=== PATIENT | female | born 1945 | race Caucasian/White ===

== ENCOUNTER 2017-07-28 11:15 | Emergency (ER) | payer MEDICARE, OTHER ==
[2017-07-28 11:35] VITALS: RESP 18
[2017-07-28] MEDS ORDERED: HYDROcodone/APAP 5-325MG 1 EACH TAB PO STA (11:52)
[2017-07-28] MEDS ORDERED: IBUPROFEN 600 MG TAB PO STA (11:52)
--- NOTE | 2017-07-28 12:07 | ED ---
Lower Extremity Injury HPI - General Chief Complaint: Extremity Injury, Lower Stated Complaint: lower leg pain Time Seen by Provider: 07/28/17 11:40 Source: patient, RN notes reviewed Mode of arrival: EMS Limitations: no limitations - History of Present Illness Initial Comments: 72-year-old female presented emergency department chief complaint of right leg pain. Patient states started yesterday progressively getting worse. Patient states the pain pain is primarily right knee and right lower leg. Patient denies any trauma. She does have known osteoarthritis of the right knee. Patient states that her so bad that she's just that she cannot move it but she physically 10 if she pushes to the pain. Denies any paresthesias. Denies any change in her normal back pain. Denies any bowel bladder incontinence or retention. Patient denies any swelling or redness or any known rash over her right leg. - Related Data Home Medications Medication Instructions Recorded Confirmed Lisinopril-Hctz 20-12.5 mg 1 tab PO DAILY 03/05/14 07/28/17 [Zestoretic 20-12.5] amLODIPine [Norvasc] 5 mg PO DAILY 03/05/14 07/28/17 Calcium Carbonate/Vitamin D3 1 tab PO BID 05/21/14 07/28/17 [Calcium 600 + Vit D Tablet] Albuterol Inhaler [Ventolin Hfa 2 puff INHALATION RT-QID 07/28/17 07/28/17 Inhaler] Cyanocobalamin (Vitamin B-12) 1,000 mcg PO DAILY 07/28/17 07/28/17 [Vitamin B-12] Multivit-Min/FA/Lycopen/Lutein 1 tab PO DAILY 07/28/17 07/28/17 [Centrum Silver Tablet] Previous Rx's Medication Instructions Recorded Acetaminophen-Codeine 300-30mg 1 tab PO Q4H PRN #14 tablet 07/28/17 [Tylenol #3] Allergies Allergy/AdvReac Type Severity Reaction Status Date / Time aspirin AdvReac Nausea & Verified 07/28/17 11:50 Vomiting Review of Systems ROS Statement: Those systems with pertinent positive or pertinent negative responses have been documented in the HPI. ROS Other: All systems not noted in ROS Statement are negative. Past Medical History Past Medical History: Asthma, Hypertension, Skin Disorder Additional Past Medical History / Comment(s): PSORIASIS TAQUERIA. LEGS UP TO KNEES- NO RX USED History of Any Multi-Drug Resistant Organisms: None Reported Past Surgical History: Tubal Ligation Additional Past Surgical History / Comment(s): D & C 1979'S, TL 1971 Past Anesthesia/Blood Transfusion Reactions: No Reported Reaction Past Psychological History: No Psychological Hx Reported Smoking Status: Former smoker General Exam Limitations: no limitations General appearance: alert, in no apparent distress Head exam: Present: atraumatic, normocephalic, normal inspection Respiratory exam: Present: normal lung sounds bilaterally. Absent: respiratory distress, wheezes, rales, rhonchi, stridor Cardiovascular Exam: Present: regular rate, normal rhythm, normal heart sounds. Absent: systolic murmur, diastolic murmur, rubs, gallop, clicks Extremities exam: Present: other (Right knee there is pain with range of motion neurovascular intact patient has decreased range of motion of right leg as she reports pain. Patient has full strength of her right foot and ankle) Neurological exam: Present: alert, oriented X3, CN II-XII intact, reflexes normal. Absent: motor sensory deficit Skin exam: Present: warm, dry, intact, normal color. Absent: rash Course Vital Signs 07/28/17 07/28/17 11:31 13:07 Temperature 98.3 F Pulse Rate 60 80 Respiratory 18 18 Rate Blood Pressure 147/63 140/61 O2 Sat by Pulse 94 L 96 Oximetry Medical Decision Making - Medical Decision Making 72-year-old female presents from chief complaint of right knee pain, right leg pain. Patient is found to have a right Reed's cyst andarthritis of the right knee. Patient we given pain medication follow-up with orthopedics. Return parameters were discussed. Disposition Clinical Impression: Reed's cyst of knee, Right leg pain Disposition: HOME SELF-CARE Condition: Stable Instructions: Knee Pain (ED) Additional Instructions: Please return to the Emergency Department if symptoms worsen or any other concerns. Prescriptions: Acetaminophen-Codeine 300-30mg [Tylenol #3] 1 tab PO Q4H PRN #14 tablet PRN Reason: pain Is patient prescribed a controlled substance at d/c from ED?: Yes When asked, does pt state using other controlled substances?: No If prescribed controlled substance>3 days was MAPS reviewed?: Prescribed <3 Days If opioid is for acute pain is fill amount 7 days or less?: Yes Referrals: Emilio Le DO [Primary Care Provider] - 1-2 days Bharathi Ferrara MD [STAFF PHYSICIAN] - 1-2 days Time of Disposition: 13:28
--- NOTE | 2017-07-28 12:42 | XR ---
EXAMINATION TYPE: XR knee complete RT DATE OF EXAM: 07/28/2017 CLINICAL HISTORY: pain TECHNIQUE: Three views of the right knee are obtained. COMPARISON: None. FINDINGS: There is no acute fracture/dislocation. The tri-compartment joint spaces appear severely narrowed. Small supra patellar joint effusion The overlying soft tissue appears unremarkable. IMPRESSION: There is no acute fracture or dislocation.ICD 10 NO FRACTURE, INITIAL EVALUATION
--- NOTE | 2017-07-28 13:24 | US ---
EXAMINATION TYPE: US venous doppler duplex LE RT DATE OF EXAM: 07/28/2017 1:08 PM COMPARISON: NONE CLINICAL HISTORY: Pain. No hx of blood clots or blood thinners. No surgeries. No injury. Patient s tates sudden onset of pain. SIDE PERFORMED: Right TECHNIQUE: The lower extremity deep venous system is examined utilizing real time linear array sonog eliezer with graded compression, doppler sonography and color-flow sonography. VESSELS IMAGED: External Iliac Vein (EIV) Common Femoral Vein Deep Femoral Vein Greater Saphenous Vein * Femoral Vein Popliteal Vein Proximal Calf Veins (* superficial vessels) Right Leg: Negative for DVT. Posterior knee, cystic appearing lesion seen with internal debris and septations = 6.9 x 3.9 x 1.8 cm IMPRESSION: 1. Right lower extremity ultrasound negative for deep venous thrombosis. 2. 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
[2017-07-28 13:37] VITALS: BP 161/74; PULSE 63; TEMP 97.3
== END 2017-07-28 14:03 | disposition home or self-care (01) ==
LOC: EC 11:15
DX: M71.21 Synovial cyst of popliteal space [Baker], right knee (principal); M79.604 Pain in right leg; M17.11 Unilateral primary osteoarthritis, right knee; Z88.6 Allergy status to analgesic agent; I10 Essential (primary) hypertension; J45.909 Unspecified asthma, uncomplicated; Z87.891 Personal history of nicotine dependence; Z79.899 Other long term (current) drug therapy
CPT/HCPCS: 99284

== ENCOUNTER 2018-02-22 00:25 | Inpatient (IN) | payer MEDICARE ==
[2018-02-22] MEDS ORDERED: IPRATROPIUM-ALBUTEROL 3 ML NEB INHALATION STA (00:50)
[2018-02-22 01:11] LABS: Basophils % (A) 1 %; Eosinophils # (A) 0.2 k/uL (0-0.7); Eosinophils % (A) 3 %; HCT 47.1 % (34.0-46.0); HGB 14.5 gm/dL (11.4-16.0); Lymphocytes % (A) 15 %; MCH 29.5 pg (25.0-35.0); MCHC 30.8 g/dL (31.0-37.0); MCV 95.7 fL (80.0-100.0); Mean Platelet Volume 6.8; Monocytes # (A) 0.4 k/uL (0-1.0); Monocytes % (A) 7 %; Neutrophils # (A) 4.5 k/uL (1.3-7.7); Neutrophils % (A) 71 %; Platelet Count 215 k/uL (150-450); RBC 4.92 m/uL (3.80-5.40); RDW 14.9 % (11.5-15.5); WBC 6.3 k/uL (3.8-10.6)
[2018-02-22 01:26] LABS: INR 0.9 (<1.2); Prothrombin Time 9.6 sec (9.0-12.0)
[2018-02-22 01:27] LABS: Creatine Kinase 44 U/L (30-135)
[2018-02-22 01:29] LABS: ALT 31 U/L (9-52); AST 37 U/L (14-36); Albumin 4.3 g/dL (3.5-5.0); Alkaline Phosphatase 68 U/L (38-126); Anion Gap 8 mmol/L; Blood Urea Nitrogen 11 mg/dL (7-17); Calcium 9.7 mg/dL (8.4-10.2); Carbon Dioxide 28 mmol/L (22-30); Chloride 99 mmol/L (98-107); Glucose 108 mg/dL (74-99); Magnesium 1.8 mg/dL (1.6-2.3); Sodium 135 mmol/L (137-145); Total Bilirubin 0.8 mg/dL (0.2-1.3); Total Protein 7.6 g/dL (6.3-8.2)
[2018-02-22 01:31] LABS: Partial Thromboplastin Time 20.6 sec (22.0-30.0)
[2018-02-22 01:33] LABS: Potassium 4.4 mmol/L (3.5-5.1)
--- NOTE | 2018-02-22 01:36 | XR ---
EXAMINATION TYPE: XR chest 2V DATE OF EXAM: 02/22/2018 COMPARISON: 06/12/2009 HISTORY: Cough and short of breath TECHNIQUE: Frontal and lateral views of the chest are obtained. FINDINGS: There is some linear density in the left midlung. Heart and mediastinum are within normal limits. There is no heart failure. The costophrenic angles are clear. Bony thorax is intact. There ar e chest leads. IMPRESSION: There is no lingula atelectasis compared to old exam. Normal heart.
[2018-02-22 01:40] LABS: Creatine Kinase MB 2.8 ng/mL (0.0-2.4); Troponin I <0.012 ng/mL (0.000-0.034)
[2018-02-22] MEDS ORDERED: MORPHINE SULFATE 4 MG/ML SYRINGE IVP STA ×2 (01:58→02:03)
[2018-02-22] MEDS ORDERED: IPRATROPIUM-ALBUTEROL 3 ML NEB INHALATION PRN (02:21)
[2018-02-22] MEDS ORDERED: PROMETHAZ-COD 6.25-10 MG/5 ML 5 ML CUP PO PRN (02:21)
--- NOTE | 2018-02-22 02:39 | ED ---
General Adult HPI - General Chief complaint: Shortness of Breath Stated complaint: Shortness of Breath Time Seen by Provider: 02/22/18 00:37 Source: patient, EMS Limitations: no limitations - History of Present Illness Initial comments: Jennifer is a 72-year-old female with a history of COPD for which she has home breathing treatments, patient is still an everyday smoker and does not use oxygen. Patient presents to the emergency department today via EMS for evaluation of progressively worsening shortness of breath for 2 days duration. Patient states that her shortness of breath worsened yesterday she's been using breathing treatments regularly but this evening her shortness of breath became overwhelming. She feels like she can't catch her breath, she is wheezing. He denies any fevers or subjective fevers, chills, nausea or vomiting. She denies any chest pain or palpitations. She does not use oxygen at baseline, EMS reports they found her with an oxygen saturation of only 83%, she was placed on supplement oxygen via nasal cannula, given 2 DuoNeb's in route to the hospital as well as 50 mg of oral prednisone. Breathing improved somewhat with oxygen and breathing treatments prior to arrival. - Related Data Home Medications Medication Instructions Recorded Confirmed Lisinopril-Hctz 20-12.5 mg 1 tab PO DAILY 03/05/14 02/22/18 [Zestoretic 20-12.5] amLODIPine [Norvasc] 5 mg PO DAILY 03/05/14 02/22/18 Calcium Carbonate/Vitamin D3 1 tab PO BID 05/21/14 02/22/18 [Calcium 600 + Vit D Tablet] Albuterol Inhaler [Ventolin Hfa 2 puff INHALATION RT-QID 07/28/17 02/22/18 Inhaler] Cyanocobalamin (Vitamin B-12) 1,000 mcg PO DAILY 07/28/17 02/22/18 [Vitamin B-12] Multivit-Min/FA/Lycopen/Lutein 1 tab PO DAILY 07/28/17 02/22/18 [Centrum Silver Tablet] Albuterol Inhaler [Ventolin Hfa 2 puff QID 02/22/18 02/22/18 Inhaler] Budesonide [Pulmicort] 02/22/18 Previous Rx's Medication Instructions Recorded Acetaminophen-Codeine 300-30mg 1 tab PO Q4H PRN #14 tablet 07/28/17 [Tylenol #3] Allergies Allergy/AdvReac Type Severity Reaction Status Date / Time aspirin AdvReac Nausea & Verified 07/28/17 11:50 Vomiting Review of Systems ROS Statement: Those systems with pertinent positive or pertinent negative responses have been documented in the HPI. ROS Other: All systems not noted in ROS Statement are negative. Past Medical History Past Medical History: Asthma, Hypertension, Skin Disorder Additional Past Medical History / Comment(s): PSORIASIS TAQUERIA. LEGS UP TO KNEES- NO RX USED History of Any Multi-Drug Resistant Organisms: None Reported Past Surgical History: Tubal Ligation Additional Past Surgical History / Comment(s): D & C , TL 1971 Past Anesthesia/Blood Transfusion Reactions: No Reported Reaction Past Psychological History: No Psychological Hx Reported Smoking Status: Former smoker - Past Family History Mother Additional Family Medical History / Comment(s): pacemaker General Exam - General Exam Comments Initial Comments: Physical Exam GENERAL: Appears older than stated age, in moderate respiratory distress HENT: Normocephalic, Atraumatic. EYES: PERRL, EOMI PULMONARY: Tachypnea, wheezing in all lung jay CARDIOVASCULAR: There is a regular rate and rhythm without any murmurs gallops or rubs. ABDOMEN: Soft and nontender with normal bowel sounds. SKIN: Skin changes consistent with chronic tobacco abuse : Deferred NEUROLOGIC: Patient is alert and oriented x3. Moving all extremities spontaneously MUSCULOSKELETAL: Normal extremities with adequate strength and full range of motion. No lower extremity swelling or edema. No calf tenderness. PSYCHIATRIC: Normal psychiatric evaluation. Limitations: no limitations Limitations: no limitations Course Vital Signs 02/22/18 02/22/18 02/22/18 00:43 01:00 01:26 Temperature 97.5 F L Pulse Rate 87 89 80 Respiratory 18 22 Rate Blood Pressure 166/77 166/77 O2 Sat by Pulse 91 L 98 Oximetry 02/22/18 02/22/18 02/22/18 01:30 01:34 02:00 Temperature Pulse Rate 80 86 87 Respiratory 20 18 Rate Blood Pressure 161/67 141/77 O2 Sat by Pulse 98 96 Oximetry 02/22/18 02/22/18 02:30 03:05 Temperature 98.3 F Pulse Rate 67 Respiratory 14 Rate Blood Pressure 151/72 O2 Sat by Pulse 97 Oximetry EKG Findings - EKG Comments: EKG Findings:: EKG obtained at 12:56 AM, rate is 91, rhythm is sinus, there is normal axis, normal intervals, WI 158, QRS 88, QTC 464, there is no acute ST elevations or depressions no evidence of acute ischemia or infarction Medical Decision Making - Medical Decision Making The patient was seen and evaluated immediately upon arrival patient in moderate respiratory ears distress patient has received 2 DuoNeb's and oral steroids, third breathing treatment labs and imaging were ordered Patient on supplemental oxygen via nasal cannula with oxygen saturations in the low 90s, reports improvement in her symptoms since EMS arrival Labs no significant abnormalities Test x-ray and no evidence of pneumonia Given the patient's new requirement of oxygen, profound hypoxia upon arrival and respiratory distress I do feel the patient warrants admission to the hospital for [id number] breathing treatments, steroids, supplemental oxygen. Patient is agreeable to this. I offered to order the patient a nicotine patch she declined stating that she does well without nicotine at home and can go days without cigarettes without problems. I offered nicotine gum should she want. However she stated that due to her poor dental condition she cannot chew gum. [facility] orders were placed. - Lab Data Result diagrams: 02/22/18 01:00 02/22/18 01:00 Lab Results 02/22/18 02/22/18 02/22/18 Range/Units 01:00 01:00 01:00 WBC 6.3 (3.8-10.6) k/uL RBC 4.92 (3.80-5.40) m/uL Hgb 14.5 (11.4-16.0) gm/dL Hct 47.1 H (34.0-46.0) % MCV 95.7 (80.0-100.0) fL MCH 29.5 (25.0-35.0) pg MCHC 30.8 L (31.0-37.0) g/dL RDW 14.9 (11.5-15.5) % Plt Count 215 (150-450) k/uL Neutrophils % 71 % Lymphocytes % 15 % Monocytes % 7 % Eosinophils % 3 % Basophils % 1 % Neutrophils # 4.5 (1.3-7.7) k/uL Lymphocytes # 1.0 (1.0-4.8) k/uL Monocytes # 0.4 (0-1.0) k/uL Eosinophils # 0.2 (0-0.7) k/uL Basophils # 0.0 (0-0.2) k/uL PT (9.0-12.0) sec INR (<1.2) APTT (22.0-30.0) sec Sodium 135 L (137-145) mmol/L Potassium 4.4 (3.5-5.1) mmol/L Chloride 99 (98-107) mmol/L Carbon Dioxide 28 (22-30) mmol/L Anion Gap 8 mmol/L BUN 11 (7-17) mg/dL Creatinine 0.38 L (0.52-1.04) mg/dL Est GFR (CKD-EPI)AfAm >90 (>60 ml/min/1.73 sqM) Est GFR (CKD-EPI)NonAf >90 (>60 ml/min/1.73 sqM) Glucose 108 H (74-99) mg/dL Calcium 9.7 (8.4-10.2) mg/dL Magnesium 1.8 (1.6-2.3) mg/dL Total Bilirubin 0.8 (0.2-1.3) mg/dL AST 37 H (14-36) U/L ALT 31 (9-52) U/L Alkaline Phosphatase 68 (38-126) U/L Total Creatine Kinase 44 (30-135) U/L CK-MB (CK-2) 2.8 H (0.0-2.4) ng/mL CK-MB (CK-2) Rel Index 6.4 Troponin I <0.012 (0.000-0.034) ng/mL NT-Pro-B Natriuret Pep pg/mL Total Protein 7.6 (6.3-8.2) g/dL Albumin 4.3 (3.5-5.0) g/dL 02/22/18 02/22/18 Range/Units 01:00 01:00 WBC (3.8-10.6) k/uL RBC (3.80-5.40) m/uL Hgb (11.4-16.0) gm/dL Hct (34.0-46.0) % MCV (80.0-100.0) fL MCH (25.0-35.0) pg MCHC (31.0-37.0) g/dL RDW (11.5-15.5) % Plt Count (150-450) k/uL Neutrophils % % Lymphocytes % % Monocytes % % Eosinophils % % Basophils % % Neutrophils # (1.3-7.7) k/uL Lymphocytes # (1.0-4.8) k/uL Monocytes # (0-1.0) k/uL Eosinophils # (0-0.7) k/uL Basophils # (0-0.2) k/uL PT 9.6 (9.0-12.0) sec INR 0.9 (<1.2) APTT 20.6 L (22.0-30.0) sec Sodium (137-145) mmol/L Potassium (3.5-5.1) mmol/L Chloride (98-107) mmol/L Carbon Dioxide (22-30) mmol/L Anion Gap mmol/L BUN (7-17) mg/dL Creatinine (0.52-1.04) mg/dL Est GFR (CKD-EPI)AfAm (>60 ml/min/1.73 sqM) Est GFR (CKD-EPI)NonAf (>60 ml/min/1.73 sqM) Glucose (74-99) mg/dL Calcium (8.4-10.2) mg/dL Magnesium (1.6-2.3) mg/dL Total Bilirubin (0.2-1.3) mg/dL AST (14-36) U/L ALT (9-52) U/L Alkaline Phosphatase (38-126) U/L Total Creatine Kinase (30-135) U/L CK-MB (CK-2) (0.0-2.4) ng/mL CK-MB (CK-2) Rel Index Troponin I (0.000-0.034) ng/mL NT-Pro-B Natriuret Pep 226 pg/mL Total Protein (6.3-8.2) g/dL Albumin (3.5-5.0) g/dL Disposition Clinical Impression: Acute exacerbation of chronic obstructive airways disease, Hypoxia Disposition: ADMITTED IP TO THIS HOSP Is patient prescribed a controlled substance at d/c from ED?: No
[2018-02-22 03:49] VITALS: BMI 36.1
[2018-02-22] MEDS ORDERED: predniSONE 20 MG TAB PO SCH (09:00)
[2018-02-22] MEDS: methylPREDNISolone SOD SUCCI 125 MG/2 ML VIAL IV SCH ×3 (12:49→23:59)
--- NOTE | 2018-02-22 14:13 | P.HPIM ---
History of Present Illness 70-year-old pleasant female continues to smoke about a pack per week known history of COPD doesn't use any oxygen at home came in with the severe shortness of breath found to be in acute hypercapnic respiratory failure was started on 4 L of oxygen started on systemic steroids inhalational treatments patient is still bit tachypneic tachycardic short of breath and wheezing at this time patient denied any fever chills patient is comparing of cough with sputum production chest x-ray did not show any pneumonic process. She denied any fever chills his symptoms has been going on for last 2-3 days Review of Systems REVIEW OF SYSTEMS: CONSTITUTIONAL: No fever, no malaise, no fatigue. HEENT: No recent visual problems or hearing problems. Denied any sore throat. CARDIOVASCULAR: No chest pain, orthopnea, PND, no palpitations, no syncope. PULMONARY:no hemoptysis. GASTROINTESTINAL: No diarrhea, no nausea, no vomiting, no abdominal pain. NEUROLOGICAL: No headaches, no weakness, no numbness. HEMATOLOGICAL: Denies any bleeding or petechiae. GENITOURINARY: Denies any burning micturition, frequency, or urgency. MUSCULOSKELETAL/RHEUMATOLOGICAL: Denies any joint pain, swelling, or any muscle pain. ENDOCRINE: Denies any polyuria or polydipsia. The rest of the 14-point review of systems is negative. Past Medical History Past Medical History: Asthma, Hypertension, Skin Disorder Additional Past Medical History / Comment(s): PSORIASIS TAQUERIA. LEGS UP TO KNEES- NO RX USED History of Any Multi-Drug Resistant Organisms: None Reported Past Surgical History: Tubal Ligation Additional Past Surgical History / Comment(s): D & C , TL 1971 Past Anesthesia/Blood Transfusion Reactions: No Reported Reaction Past Psychological History: No Psychological Hx Reported Smoking Status: Former smoker - Past Family History Mother Additional Family Medical History / Comment(s): pacemaker Medications and Allergies Home Medications Medication Instructions Recorded Confirmed Type Lisinopril-Hctz 20-12.5 mg 1 tab PO DAILY 03/05/14 02/22/18 History [Zestoretic 20-12.5] amLODIPine [Norvasc] 5 mg PO DAILY 03/05/14 02/22/18 History Calcium Carbonate/Vitamin D3 1 tab PO BID 05/21/14 02/22/18 History [Calcium 600 + Vit D Tablet] Albuterol Inhaler [Ventolin Hfa 2 puff INHALATION RT-QID 07/28/17 02/22/18 History Inhaler] Multivit-Min/FA/Lycopen/Lutein 1 tab PO DAILY 07/28/17 02/22/18 History [Centrum Silver Tablet] Albuterol Nebulized [Ventolin 2.5 mg INHALATION RT-Q6H PRN 02/22/18 02/22/18 History Nebulized] Budesonide [Pulmicort] 0.5 mg INHALATION RT-BID 02/22/18 02/22/18 History Allergies Allergy/AdvReac Type Severity Reaction Status Date / Time aspirin AdvReac Nausea & Verified 02/22/18 08:06 Vomiting Physical Exam Vitals: Vital Signs Temp Pulse Pulse Resp BP BP Pulse Ox 02/22/18 11:51 98 F 83 18 171/76 92 L 02/22/18 07:22 90 02/22/18 07:12 88 02/22/18 06:16 97.9 F 70 18 158/75 95 02/22/18 03:33 97.4 F L 79 18 136/63 93 L 02/22/18 03:05 98.3 F 02/22/18 02:30 67 14 151/72 97 02/22/18 02:00 87 18 141/77 96 02/22/18 01:34 86 02/22/18 01:30 80 20 161/67 98 02/22/18 01:26 80 02/22/18 01:00 89 22 166/77 98 02/22/18 00:43 97.5 F L 87 18 166/77 91 L Intake and Output 02/21/18 02/22/18 02/22/18 22:59 06:59 14:59 Intake Total 250 Balance 250 Intake: Oral 250 Other: Voiding Method Toilet Toilet Diaper Diaper Incontinent Incontinent Weight 92.5 kg PHYSICAL EXAMINATION: GENERAL: The patient is alert and oriented x3, is in significant respiratory distress using accessory muscles of breathing gets short of breath with minimal exertion can't even complete full sentences because of shortness of breath Well developed, well nourished. HEENT: Pupils are round and equally reacting to light. EOMI. No scleral icterus. No conjunctival pallor. Normocephalic, atraumatic. No pharyngeal erythema. No thyromegaly. CARDIOVASCULAR: S1 and S2 present. No murmurs, rubs, or gallops. PULMONARY: Diffuse expiratory wheezing on exam ABDOMEN: Soft, nontender, nondistended, normoactive bowel sounds. No palpable organomegaly. MUSCULOSKELETAL: No joint swelling or deformity. EXTREMITIES: No cyanosis, clubbing, or pedal edema. NEUROLOGICAL: Gross neurological examination did not reveal any focal deficits. SKIN: No rashes. Results CBC & Chem 7: 02/22/18 01:00 02/22/18 01:00 Labs: Abnormal Lab Results - Last 24 Hours (Table) 02/22/18 02/22/18 02/22/18 Range/Units 01:00 01:00 01:00 Hct 47.1 H (34.0-46.0) % MCHC 30.8 L (31.0-37.0) g/dL APTT (22.0-30.0) sec Sodium 135 L (137-145) mmol/L Creatinine 0.38 L (0.52-1.04) mg/dL Glucose 108 H (74-99) mg/dL AST 37 H (14-36) U/L CK-MB (CK-2) 2.8 H (0.0-2.4) ng/mL 02/22/18 Range/Units 01:00 Hct (34.0-46.0) % MCHC (31.0-37.0) g/dL APTT 20.6 L (22.0-30.0) sec Sodium (137-145) mmol/L Creatinine (0.52-1.04) mg/dL Glucose (74-99) mg/dL AST (14-36) U/L CK-MB (CK-2) (0.0-2.4) ng/mL Thrombosis Risk Factor Assmnt - Choose All That Apply Any of the Below Risk Factors Present?: Yes Each Factor Represents 1 point: Abnormal pulmonary function (COPD), Obesity ( BMI >25) Other Risk Factors: Yes Each Risk Factor Represents 2 Points: Age 61-74 years, Patient confined to bed Other congenital or acquired thrombophilia - If yes, enter type in comment: No Thrombosis Risk Factor Assessment Total Risk Factor Score: 6 Thrombosis Risk Factor Assessment Level: High Risk Assessment and Plan Plan: -Acute hypercapnic respiratory failure secondary to COPD exacerbation nicotine cessation counseling was provided did continue with IV steroids inhalational treatments patient was started on doxycycline. Patient is severely short of breath will continue to monitor closely if needed patient will be started on BiPAP -Hypertension: Patient blood pressure is bit elevated patient resumed on her anti-happens medications -Psoriasis Patient will need pharmacologic DVT and GI prophylaxis
[2018-02-22] MEDS: amLODIPine 5 MG TAB PO SCH (14:25)
[2018-02-22] MEDS: LISINOPRIL-HCTZ 20-12.5 MG 1 EACH TAB PO SCH (14:25)
[2018-02-22] MEDS: IPRATROPIUM-ALBUTEROL 3 ML NEB INHALATION SCH ×3 (15:26→23:40)
[2018-02-22 17:30] LABS: Glucose,Whole Blood 157 mg/dL (75-99)
[2018-02-22] MEDS: CALCIUM CARB-VIT D 500MG-200UN 1 EACH TAB PO SCH (17:40)
[2018-02-22] MEDS: INSULIN ASPART 100 UNIT/ML 1 ML 10 ML VIAL SQ SCH ×2 (17:40→21:41)
[2018-02-22] MEDS: BUDESONIDE 0.5 MG/2 ML NEBU INHALATION SCH (19:25)
[2018-02-22 20:25] LABS: Glucose,Whole Blood 162 mg/dL (75-99)
[2018-02-22] MEDS: FAMOTIDINE 20 MG TAB PO SCH (21:40)
[2018-02-22] MEDS: HEPARIN SODIUM,PORCINE 5,000 UNIT/ML 1 ML VIAL SQ SCH (21:40)
[2018-02-22] MEDS: DOXYCYCLINE 100 MG CAP PO SCH (21:40)
--- NOTE | 2018-02-22 22:30 | P.CNPUL ---
History of Present Illness Consult date: 02/22/18 Reason for consult: dyspnea, cough, COPD, hypoxemia Chief complaint: COPD exacerbation History of present illness: 72-year-old female with history of severe COPD emphysema on bronchodilator in the form of nebulizer, patient is still a active smoker, has not been feeling well for the last 3 or 4 days with increased cough congestion shortness of breath symptoms have been progressive decided to come into emergency department she was found to have oxygen saturation of only 83% she had wheezing shortness of breath she has been given bronchodilator therapy without any significant relief and eventually admitted into the hospital she is currently on supplemental oxygen breathing treatment but just get short of breath on minimal activity and exertion, on specific questioning denies any seizure-like to a loss of consciousness), denies any chest pain or radiation of pain, denies any hemoptysis, denies any bowel or bladder discomfort, and yet home she takes blood pressure medicine also has been on nebulizer therapy and as needed MDI, Review of Systems All systems: negative Past Medical History Past Medical History: Asthma, Hypertension, Skin Disorder Additional Past Medical History / Comment(s): PSORIASIS TAQUERIA. LEGS UP TO KNEES- NO RX USED History of Any Multi-Drug Resistant Organisms: None Reported Past Surgical History: Tubal Ligation Additional Past Surgical History / Comment(s): D & C 1979'S, TL 1971 Past Anesthesia/Blood Transfusion Reactions: No Reported Reaction Past Psychological History: No Psychological Hx Reported Smoking Status: Former smoker - Past Family History Mother Additional Family Medical History / Comment(s): pacemaker Medications and Allergies Home Medications Medication Instructions Recorded Confirmed Type Lisinopril-Hctz 20-12.5 mg 1 tab PO DAILY 03/05/14 02/22/18 History [Zestoretic 20-12.5] amLODIPine [Norvasc] 5 mg PO DAILY 03/05/14 02/22/18 History Calcium Carbonate/Vitamin D3 1 tab PO BID 05/21/14 02/22/18 History [Calcium 600 + Vit D Tablet] Albuterol Inhaler [Ventolin Hfa 2 puff INHALATION RT-QID 07/28/17 02/22/18 History Inhaler] Multivit-Min/FA/Lycopen/Lutein 1 tab PO DAILY 07/28/17 02/22/18 History [Centrum Silver Tablet] Albuterol Nebulized [Ventolin 2.5 mg INHALATION RT-Q6H PRN 02/22/18 02/22/18 History Nebulized] Budesonide [Pulmicort] 0.5 mg INHALATION RT-BID 02/22/18 02/22/18 History Allergies Allergy/AdvReac Type Severity Reaction Status Date / Time aspirin AdvReac Nausea & Verified 02/22/18 08:06 Vomiting Physical Exam Vitals: Vital Signs Temp Pulse Pulse Resp BP BP Pulse Ox 02/22/18 21:00 97.3 F L 78 20 130/76 93 L 02/22/18 19:46 75 02/22/18 19:28 75 92 L 02/22/18 15:38 93 02/22/18 15:26 92 02/22/18 11:51 98 F 83 18 171/76 92 L 02/22/18 07:22 90 02/22/18 07:12 88 02/22/18 06:16 97.9 F 70 18 158/75 95 02/22/18 03:33 97.4 F L 79 18 136/63 93 L 02/22/18 03:05 98.3 F 02/22/18 02:30 67 14 151/72 97 02/22/18 02:00 87 18 141/77 96 02/22/18 01:34 86 02/22/18 01:30 80 20 161/67 98 02/22/18 01:26 80 02/22/18 01:00 89 22 166/77 98 02/22/18 00:43 97.5 F L 87 18 166/77 91 L Intake and Output 02/22/18 02/22/18 02/22/18 06:59 14:59 22:59 Intake Total 250 830 Balance 250 830 Intake: Oral 250 830 Other: Voiding Method Toilet Toilet Diaper Diaper Incontinent Incontinent # Voids 2 1 Weight 92.5 kg - Constitutional General appearance: average body habitus, cooperative, disheveled, mild distress , obese - EENT Eyes: EOMI, PERRLA, poor dentition, normal appearance ENT: normal oropharynx Ears: bilateral: normal - Neck Neck: normal ROM Carotids: bilateral: upstroke normal Thyroid: bilateral: normal size - Respiratory Respiratory: bilateral: diminished, rhonchi, wheezing, prolonged expiration, negative: dullness, rales - Cardiovascular Rhythm: regular Heart sounds: normal: S1, S2 - Gastrointestinal General gastrointestinal: normal bowel sounds - Integumentary Integumentary: normal turgor - Neurologic Neurologic: CNII-XII intact - Musculoskeletal Musculoskeletal: gait normal, generalized weakness, strength equal bilaterally - Psychiatric Psychiatric: A&O x's 3, appropriate affect, intact judgment & insight Results - Laboratory Findings CBC and BMP: 02/22/18 01:00 02/22/18 01:00 PT/INR, D-dimer PT 9.6 sec (9.0-12.0) 02/22/18 01:00 INR 0.9 (<1.2) 02/22/18 01:00 Abnormal lab findings: Abnormal Labs 02/22/18 02/22/18 02/22/18 01:00 01:00 01:00 Hct 47.1 H MCHC 30.8 L APTT Sodium 135 L Creatinine 0.38 L Glucose 108 H POC Glucose (mg/dL) AST 37 H CK-MB (CK-2) 2.8 H 02/22/18 02/22/18 02/22/18 01:00 17:29 20:23 Hct MCHC APTT 20.6 L Sodium Creatinine Glucose POC Glucose (mg/dL) 157 H 162 H AST CK-MB (CK-2) - Diagnostic Findings Chest x-ray: report reviewed, image reviewed (Left mid lung field developing pneumonia cannot be excluded) Assessment and Plan Assessment: Left mid lung field community-acquired pneumonia we will repeat the chest x-ray tomorrow Acute COPD exacerbation Hypertension hypertensive cardiovascular disease Acute hypoxic respiratory failure Extensive history of smoking and nicotine use Plan: Obtain follow-up chest x-ray tomorrow Continue IV steroids Breathing treatments DVT and peptic ulcer disease prophylaxis Continue supplemental oxygen Patient to be evaluated for home oxygen at the time of discharge Further recommendations pending plan of care as per clinical response of the patient Time with Patient: Greater than 30
[2018-02-23] MEDS: IPRATROPIUM-ALBUTEROL 3 ML NEB INHALATION SCH ×6 (03:26→23:27)
[2018-02-23] MEDS: methylPREDNISolone SOD SUCCI 125 MG/2 ML VIAL IV SCH ×2 (05:54→12:37)
[2018-02-23 06:58] LABS: Glucose,Whole Blood 131 mg/dL (75-99)
[2018-02-23] MEDS: BUDESONIDE 0.5 MG/2 ML NEBU INHALATION SCH ×2 (07:22→19:45)
[2018-02-23] MEDS: HEPARIN SODIUM,PORCINE 5,000 UNIT/ML 1 ML VIAL SQ SCH ×2 (08:13→20:41)
[2018-02-23] MEDS: INSULIN ASPART 100 UNIT/ML 1 ML 10 ML VIAL SQ SCH ×4 (08:13→20:41)
[2018-02-23] MEDS: FAMOTIDINE 20 MG TAB PO SCH ×2 (08:13→20:41)
[2018-02-23] MEDS: amLODIPine 5 MG TAB PO SCH (08:13)
[2018-02-23] MEDS: DOXYCYCLINE 100 MG CAP PO SCH ×2 (08:14→20:41)
[2018-02-23] MEDS: LISINOPRIL-HCTZ 20-12.5 MG 1 EACH TAB PO SCH (08:14)
--- NOTE | 2018-02-23 08:33 | XR ---
EXAMINATION TYPE: XR chest 1V DATE OF EXAM: 02/23/2018 HISTORY: Shortness of breath. COMPARISON: 02/22/2018 TECHNIQUE: Single view of the chest is submitted. FINDINGS: Demonstrated are scattered senescent parenchymal change. Stable increased density left infrahilar region may reflect atelectasis and/or infiltrate. Similar ap pearance right medial lung base. The heart is stable. Hilar and mediastinal structures are within normal limits. Degenerative changes are seen of the dorsal spine. IMPRESSION: 1. Stable increased density left infrahilar region may reflect atelectasis and/or infiltrate. Simila r appearance right medial lung base.
[2018-02-23 11:19] LABS: Glucose,Whole Blood 101 mg/dL (75-99)
[2018-02-23 11:29] LABS: Hemoglobin A1C 5.8 % (4.0-6.0)
[2018-02-23] MEDS: CALCIUM CARB-VIT D 500MG-200UN 1 EACH TAB PO SCH ×2 (12:37→16:42)
--- NOTE | 2018-02-23 14:37 | P.PN ---
Subjective Progress Note Date: 02/23/18 Principal diagnosis: Acute COPD exacerbation, tracheobronchitis, acute hypoxic respiratory failure, active smoker, 02/23/2018, patient seen eval examined during the rounds clinically slightly better respiratory status slightly improved breathing more comfortably no obvious distress present hemodynamic status stable, is still very short of breath have ongoing dry nonproductive cough labs reviewed medications reviewed care plan discussed with the patient at length 72-year-old female with history of severe COPD emphysema on bronchodilator in the form of nebulizer, patient is still a active smoker, has not been feeling well for the last 3 or 4 days with increased cough congestion shortness of breath symptoms have been progressive decided to come into emergency department she was found to have oxygen saturation of only 83% she had wheezing shortness of breath she has been given bronchodilator therapy without any significant relief and eventually admitted into the hospital she is currently on supplemental oxygen breathing treatment but just get short of breath on minimal activity and exertion, on specific questioning denies any seizure-like to a loss of consciousness), denies any chest pain or radiation of pain, denies any hemoptysis, denies any bowel or bladder discomfort, and yet home she takes blood pressure medicine also has been on nebulizer therapy and as needed MDI, Objective - Vital Signs Vital signs: Vital Signs Temp 97.8 F 02/23/18 12:08 Pulse 78 02/23/18 12:08 Resp 16 02/23/18 12:08 BP 131/62 02/23/18 12:08 Pulse Ox 95 02/23/18 12:08 Intake & Output 02/22/18 02/23/18 02/23/18 18:59 06:59 18:59 Intake Total 1310 Balance 1310 Intake: Oral 1310 Other: Voiding Method Toilet Bedside Commode Bedside Commode Diaper Incontinent # Voids 2 2 - Exam - Constitutional General appearance: average body habitus, cooperative, disheveled, mild distress , obese - EENT Eyes: EOMI, PERRLA, poor dentition, normal appearance ENT: normal oropharynx Ears: bilateral: normal - Neck Neck: normal ROM Carotids: bilateral: upstroke normal Thyroid: bilateral: normal size - Respiratory Respiratory: bilateral: diminished, rhonchi, wheezing, prolonged expiration, negative: dullness, rales - Cardiovascular Rhythm: regular Heart sounds: normal: S1, S2 - Gastrointestinal General gastrointestinal: normal bowel sounds - Integumentary Integumentary: normal turgor - Neurologic Neurologic: CNII-XII intact - Musculoskeletal Musculoskeletal: gait normal, generalized weakness, strength equal bilaterally - Psychiatric Psychiatric: A&O x's 3, appropriate affect, intact judgment & insight - Labs CBC & Chem 7: 02/22/18 01:00 02/22/18 01:00 Labs: Abnormal Lab Results - Last 24 Hours (Table) 02/22/18 02/22/18 02/23/18 Range/Units 17:29 20:23 06:55 POC Glucose (mg/dL) 157 H 162 H 131 H (75-99) mg/dL 02/23/18 Range/Units 11:17 POC Glucose (mg/dL) 101 H (75-99) mg/dL - Imaging and Cardiology Chest x-ray: report reviewed (Left perihilar pneumonia cannot be excluded), image reviewed Assessment and Plan Assessment: Left mid lung field community-acquired pneumonia today's x-ray reviewed Acute COPD exacerbation Hypertension hypertensive cardiovascular disease Acute hypoxic respiratory failure Extensive history of smoking and nicotine use Plan: Reviewed follow-up chest x-ray tomorrow Continue IV steroids Breathing treatments DVT and peptic ulcer disease prophylaxis Continue supplemental oxygen Patient to be evaluated for home oxygen at the time of discharge Further recommendations pending plan of care as per clinical response of the patient Time with Patient: Greater than 30
--- NOTE | 2018-02-23 15:52 | P.PN ---
Subjective 72-year-old pleasant female admitted for COPD exacerbation patient and repeat chest x-ray which showed both the left and right middle lobe possibly of pneumonia my suspicion is patient mostly has atelectasis, patient will be started on Rocephin as well to cover today quite pneumonia patient is already in doxycycline which will be continued. Patient is still wheezing quite a bit continue with IV steroids will cut down the steroids a little bit. But better than yesterday her respiratory status did improve still get short of breath quite a bit upon minimal ablation. Constitutional: Denied any fatigue denied any fever. Cardio vascular: denied any chest pain, palpitations Gastrointestinal denied any nausea vomiting Pulmonary: As mentioned in HPI Neurologic denied any new focal deficits All inpatient medications were reviewed and appropriate changes in these medications as dictated in the interval history and assessment and plan. Objective - Vital Signs Vital signs: Vital Signs Temp 97.8 F 02/23/18 12:08 Pulse 84 02/23/18 15:13 Resp 16 02/23/18 12:08 BP 131/62 02/23/18 12:08 Pulse Ox 95 02/23/18 12:08 Intake & Output 02/22/18 02/23/18 02/23/18 18:59 06:59 18:59 Intake Total 1310 Balance 1310 Intake: Oral 1310 Other: Voiding Method Toilet Bedside Commode Bedside Commode Diaper Incontinent # Voids 2 2 2 - Exam PHYSICAL EXAMINATION: GENERAL: The patient is alert and oriented x3, not in any acute distress. Well developed, well nourished. HEENT: Pupils are round and equally reacting to light. EOMI. No scleral icterus. No conjunctival pallor. Normocephalic, atraumatic. No pharyngeal erythema. No thyromegaly. CARDIOVASCULAR: S1 and S2 present. No murmurs, rubs, or gallops. PULMONARY: Significantly decreased air entry into bilateral lung jay with significant expiratory wheezing on exam. Patient is not using accessory muscles of breathing today. ABDOMEN: Soft, nontender, nondistended, normoactive bowel sounds. No palpable organomegaly. MUSCULOSKELETAL: No joint swelling or deformity. EXTREMITIES: No cyanosis, clubbing, or pedal edema. NEUROLOGICAL: Gross neurological examination did not reveal any focal deficits. SKIN: No rashes. - Labs CBC & Chem 7: 02/22/18 01:00 02/22/18 01:00 Labs: Abnormal Lab Results - Last 24 Hours (Table) 02/22/18 02/22/18 02/23/18 Range/Units 17:29 20:23 06:55 POC Glucose (mg/dL) 157 H 162 H 131 H (75-99) mg/dL 02/23/18 Range/Units 11:17 POC Glucose (mg/dL) 101 H (75-99) mg/dL Assessment and Plan Plan: -Acute hypercapnic respiratory failure secondary to COPD exacerbation . She'll be continued on IV steroids and inhalational treatments. -Possibility of pneumonia Rocephin will be added to doxycycline patient has a right as well as with left middle lobe possible pneumonia -Hypertension: Patient blood pressure is bit elevated patient resumed on her anti-happens medications -Psoriasis Patient will need pharmacologic DVT and GI prophylaxis
[2018-02-23] MEDS: methylPREDNISolone SOD SUCCI 40 MG/ML 1 ML VIAL IV SCH (16:40)
[2018-02-23 16:53] LABS: Glucose,Whole Blood 124 mg/dL (75-99)
[2018-02-23 20:16] LABS: Glucose,Whole Blood 185 mg/dL (75-99)
[2018-02-23] MEDS: ACETAMINOPHEN TAB 325 MG TAB PO PRN (23:46)
[2018-02-23] MEDS: MELATONIN 3 MG TABLET PO SCH (23:46)
[2018-02-24] MEDS: methylPREDNISolone SOD SUCCI 40 MG/ML 1 ML VIAL IV SCH ×4 (02:00→23:28)
[2018-02-24] MEDS: IPRATROPIUM-ALBUTEROL 3 ML NEB INHALATION SCH ×5 (05:13→20:19)
[2018-02-24 06:58] LABS: Glucose,Whole Blood 121 mg/dL (75-99)
[2018-02-24] MEDS: INSULIN ASPART 100 UNIT/ML 1 ML 10 ML VIAL SQ SCH ×4 (07:41→21:39)
[2018-02-24] MEDS: BUDESONIDE 0.5 MG/2 ML NEBU INHALATION SCH ×2 (08:44→20:19)
[2018-02-24] MEDS: CALCIUM CARB-VIT D 500MG-200UN 1 EACH TAB PO SCH ×2 (09:05→17:47)
[2018-02-24] MEDS: LISINOPRIL-HCTZ 20-12.5 MG 1 EACH TAB PO SCH (09:05)
[2018-02-24] MEDS: DOXYCYCLINE 100 MG CAP PO SCH ×2 (09:05→21:42)
[2018-02-24] MEDS: FAMOTIDINE 20 MG TAB PO SCH ×2 (09:05→21:42)
[2018-02-24] MEDS: amLODIPine 5 MG TAB PO SCH (09:05)
[2018-02-24] MEDS: HEPARIN SODIUM,PORCINE 5,000 UNIT/ML 1 ML VIAL SQ SCH ×2 (09:05→21:42)
[2018-02-24 11:35] LABS: Glucose,Whole Blood 144 mg/dL (75-99)
[2018-02-24 17:20] LABS: Glucose,Whole Blood 134 mg/dL (75-99)
--- NOTE | 2018-02-24 17:21 | P.PN ---
Subjective 72-year-old pleasant female admitted for COPD exacerbation patient and repeat chest x-ray which showed both the left and right middle lobe possibly of pneumonia my suspicion is patient mostly has atelectasis, patient will be started on Rocephin as well to cover today quite pneumonia patient is already in doxycycline which will be continued. Patient is still wheezing quite a bit continue with IV steroids will cut down the steroids a little bit. But better than yesterday her respiratory status did improve still get short of breath quite a bit upon minimal ambulation. 02/24/2018 Patient feels like she has phlegm stuck in side the throat will use mucolytic agents for that. Patient is still significantly short of breath Constitutional: Denied any fatigue denied any fever. Cardio vascular: denied any chest pain, palpitations Gastrointestinal denied any nausea vomiting Pulmonary: As mentioned in HPI Neurologic denied any new focal deficits All inpatient medications were reviewed and appropriate changes in these medications as dictated in the interval history and assessment and plan. Objective - Vital Signs Vital signs: Vital Signs Temp 97.5 F L 02/24/18 11:36 Pulse 82 02/24/18 15:50 Resp 22 02/24/18 11:36 BP 158/77 02/24/18 11:36 Pulse Ox 97 02/24/18 15:28 Intake & Output 02/23/18 02/24/18 02/24/18 18:59 06:59 18:59 Intake Total 740 Balance 740 Intake: Oral 740 Other: Voiding Method Bedside Commode Bedside Commode Bedside Commode Diaper # Voids 1 2 2 # Bowel Movements 1 - Exam PHYSICAL EXAMINATION: GENERAL: The patient is alert and oriented x3, not in any acute distress. Well developed, well nourished. HEENT: Pupils are round and equally reacting to light. EOMI. No scleral icterus. No conjunctival pallor. Normocephalic, atraumatic. No pharyngeal erythema. No thyromegaly. CARDIOVASCULAR: S1 and S2 present. No murmurs, rubs, or gallops. PULMONARY: Significant expiratory wheezing and very minimal air entry into bilateral lung jay ABDOMEN: Soft, nontender, nondistended, normoactive bowel sounds. No palpable organomegaly. MUSCULOSKELETAL: No joint swelling or deformity. EXTREMITIES: No cyanosis, clubbing, or pedal edema. NEUROLOGICAL: Gross neurological examination did not reveal any focal deficits. SKIN: No rashes. - Labs CBC & Chem 7: 02/22/18 01:00 02/22/18 01:00 Labs: Abnormal Lab Results - Last 24 Hours (Table) 02/23/18 02/24/18 02/24/18 Range/Units 20:12 06:55 11:14 POC Glucose (mg/dL) 185 H 121 H 144 H (75-99) mg/dL Assessment and Plan Plan: -Acute hypercapnic respiratory failure secondary to COPD exacerbation . She'll be continued on IV steroids and inhalational treatments. -Possibility of pneumonia Rocephin will be added to doxycycline patient has a right as well as with left middle lobe possible pneumonia -Hypertension: Patient blood pressure is bit elevated patient resumed on her anti-happens medications -Psoriasis Patient will need pharmacologic DVT and GI prophylaxis
--- NOTE | 2018-02-24 18:52 | P.PN ---
Subjective Progress Note Date: 02/24/18 Principal diagnosis: Acute COPD exacerbation, tracheobronchitis, acute hypoxic respiratory failure, active smoker, 02/24/2018, patient seen eval examined during the rounds clinically patient is overall remains stable but is still very short of breath does have severe degree of dyspnea on exertion and minimal activity she has ongoing wheezing cough congestion but severity is not much change cough is predominately nonproductive, labs reviewed medications reviewed care plan discussed with the patient as well as staff at length 02/23/2018, patient seen eval examined during the rounds clinically slightly better respiratory status slightly improved breathing more comfortably no obvious distress present hemodynamic status stable, is still very short of breath have ongoing dry nonproductive cough labs reviewed medications reviewed care plan discussed with the patient at length 72-year-old female with history of severe COPD emphysema on bronchodilator in the form of nebulizer, patient is still a active smoker, has not been feeling well for the last 3 or 4 days with increased cough congestion shortness of breath symptoms have been progressive decided to come into emergency department she was found to have oxygen saturation of only 83% she had wheezing shortness of breath she has been given bronchodilator therapy without any significant relief and eventually admitted into the hospital she is currently on supplemental oxygen breathing treatment but just get short of breath on minimal activity and exertion, on specific questioning denies any seizure-like to a loss of consciousness), denies any chest pain or radiation of pain, denies any hemoptysis, denies any bowel or bladder discomfort, and yet home she takes blood pressure medicine also has been on nebulizer therapy and as needed MDI, Objective - Vital Signs Vital signs: Vital Signs Temp 97.5 F L 02/24/18 11:36 Pulse 82 02/24/18 15:50 Resp 22 02/24/18 11:36 BP 158/77 02/24/18 11:36 Pulse Ox 97 02/24/18 15:28 Intake & Output 02/23/18 02/24/18 02/24/18 18:59 06:59 18:59 Intake Total 740 Balance 740 Intake: Oral 740 Other: Voiding Method Bedside Commode Bedside Commode Bedside Commode Diaper # Voids 1 2 2 # Bowel Movements 1 - Exam - Constitutional General appearance: average body habitus, cooperative, disheveled, mild distress , obese - EENT Eyes: EOMI, PERRLA, poor dentition, normal appearance ENT: normal oropharynx Ears: bilateral: normal - Neck Neck: normal ROM Carotids: bilateral: upstroke normal Thyroid: bilateral: normal size - Respiratory Respiratory: bilateral: diminished, rhonchi, wheezing, prolonged expiration, negative: dullness, rales - Cardiovascular Rhythm: regular Heart sounds: normal: S1, S2 - Gastrointestinal General gastrointestinal: normal bowel sounds - Integumentary Integumentary: normal turgor - Neurologic Neurologic: CNII-XII intact - Musculoskeletal Musculoskeletal: gait normal, generalized weakness, strength equal bilaterally - Psychiatric Psychiatric: A&O x's 3, appropriate affect, intact judgment & insight - Labs CBC & Chem 7: 02/22/18 01:00 02/22/18 01:00 Labs: Abnormal Lab Results - Last 24 Hours (Table) 02/23/18 02/24/18 02/24/18 Range/Units 20:12 06:55 11:14 POC Glucose (mg/dL) 185 H 121 H 144 H (75-99) mg/dL 02/24/18 Range/Units 17:17 POC Glucose (mg/dL) 134 H (75-99) mg/dL Assessment and Plan Assessment: Left mid lung field community-acquired pneumonia today's x-ray reviewed Acute COPD exacerbation Hypertension hypertensive cardiovascular disease Acute hypoxic respiratory failure Extensive history of smoking and nicotine use Plan: Reviewed follow-up chest x-ray tomorrow Continue IV steroids Breathing treatments DVT and peptic ulcer disease prophylaxis Continue supplemental oxygen Patient to be evaluated for home oxygen at the time of discharge Further recommendations pending plan of care as per clinical response of the patient Time with Patient: Greater than 30
[2018-02-24] MEDS ORDERED: ALBUTEROL INHALER 60 PUFF/8 GM INHALER INHALATION PRN (19:56)
[2018-02-24 20:57] LABS: Glucose,Whole Blood 110 mg/dL (75-99)
[2018-02-24] MEDS: guaiFENesin-DM 600/30MG 1 EACH TAB.ER.12H PO SCH (21:42)
[2018-02-24] MEDS: MELATONIN 3 MG TABLET PO SCH (21:42)
[2018-02-24] MEDS: ACETAMINOPHEN TAB 325 MG TAB PO PRN (23:28)
[2018-02-25] MEDS: IPRATROPIUM-ALBUTEROL 3 ML NEB INHALATION SCH ×7 (01:08→23:58)
[2018-02-25 07:11] LABS: Glucose,Whole Blood 113 mg/dL (75-99)
[2018-02-25] MEDS: INSULIN ASPART 100 UNIT/ML 1 ML 10 ML VIAL SQ SCH ×4 (07:56→21:35)
[2018-02-25] MEDS: methylPREDNISolone SOD SUCCI 40 MG/ML 1 ML VIAL IV SCH ×3 (08:06→23:50)
[2018-02-25] MEDS: LISINOPRIL-HCTZ 20-12.5 MG 1 EACH TAB PO SCH (08:06)
[2018-02-25] MEDS: HEPARIN SODIUM,PORCINE 5,000 UNIT/ML 1 ML VIAL SQ SCH ×2 (08:06→21:34)
[2018-02-25] MEDS: amLODIPine 5 MG TAB PO SCH (08:07)
[2018-02-25] MEDS: FAMOTIDINE 20 MG TAB PO SCH ×2 (08:07→21:34)
[2018-02-25] MEDS: DOXYCYCLINE 100 MG CAP PO SCH ×2 (08:07→21:34)
[2018-02-25] MEDS: guaiFENesin-DM 600/30MG 1 EACH TAB.ER.12H PO SCH ×2 (08:07→21:34)
[2018-02-25] MEDS: BUDESONIDE 0.5 MG/2 ML NEBU INHALATION SCH ×2 (09:08→20:44)
[2018-02-25 11:31] LABS: Glucose,Whole Blood 105 mg/dL (75-99)
[2018-02-25] MEDS: CALCIUM CARB-VIT D 500MG-200UN 1 EACH TAB PO SCH ×2 (13:44→17:04)
--- NOTE | 2018-02-25 15:53 | P.PN ---
Subjective Progress Note Date: 02/25/18 Principal diagnosis: Acute COPD exacerbation, tracheobronchitis, acute hypoxic respiratory failure, active smoker, 02/25/2018, patient seen eval examined during the rounds clinically patient has been doing relatively better, awake and alert breathing comparatively more comfortably no obvious distress is present but still get short of breath on activity and exertion severity of respiratory distress however has improved compared to yesterday exam is still of ongoing dry cough unable to produce sputum, labs reviewed care plan discussed with the primary service at length 02/24/2018, patient seen eval examined during the rounds clinically patient is overall remains stable but is still very short of breath does have severe degree of dyspnea on exertion and minimal activity she has ongoing wheezing cough congestion but severity is not much change cough is predominately nonproductive, labs reviewed medications reviewed care plan discussed with the patient as well as staff at length 02/23/2018, patient seen eval examined during the rounds clinically slightly better respiratory status slightly improved breathing more comfortably no obvious distress present hemodynamic status stable, is still very short of breath have ongoing dry nonproductive cough labs reviewed medications reviewed care plan discussed with the patient at length 72-year-old female with history of severe COPD emphysema on bronchodilator in the form of nebulizer, patient is still a active smoker, has not been feeling well for the last 3 or 4 days with increased cough congestion shortness of breath symptoms have been progressive decided to come into emergency department she was found to have oxygen saturation of only 83% she had wheezing shortness of breath she has been given bronchodilator therapy without any significant relief and eventually admitted into the hospital she is currently on supplemental oxygen breathing treatment but just get short of breath on minimal activity and exertion, on specific questioning denies any seizure-like to a loss of consciousness), denies any chest pain or radiation of pain, denies any hemoptysis, denies any bowel or bladder discomfort, and yet home she takes blood pressure medicine also has been on nebulizer therapy and as needed MDI, Objective - Vital Signs Vital signs: Vital Signs Temp 97.5 F L 02/25/18 11:58 Pulse 84 02/25/18 12:30 Resp 20 02/25/18 11:58 BP 160/73 02/25/18 11:58 Pulse Ox 96 02/25/18 11:58 Intake & Output 02/24/18 02/25/18 02/25/18 18:59 06:59 18:59 Intake Total 300 480 Balance 300 480 Weight 92.5 kg Intake: Oral 300 480 Other: Voiding Method Bedside Commode Toilet Toilet Bedside Commode Bedside Commode Diaper # Voids 2 1 3 # Bowel Movements 1 - Exam - Constitutional General appearance: average body habitus, cooperative, disheveled, mild distress , obese - EENT Eyes: EOMI, PERRLA, poor dentition, normal appearance ENT: normal oropharynx Ears: bilateral: normal - Neck Neck: normal ROM Carotids: bilateral: upstroke normal Thyroid: bilateral: normal size - Respiratory Respiratory: bilateral: diminished, rhonchi, wheezing, prolonged expiration, negative: dullness, rales - Cardiovascular Rhythm: regular Heart sounds: normal: S1, S2 - Gastrointestinal General gastrointestinal: normal bowel sounds - Integumentary Integumentary: normal turgor - Neurologic Neurologic: CNII-XII intact - Musculoskeletal Musculoskeletal: gait normal, generalized weakness, strength equal bilaterally - Psychiatric Psychiatric: A&O x's 3, appropriate affect, intact judgment & insight - Labs CBC & Chem 7: 02/22/18 01:00 02/22/18 01:00 Labs: Abnormal Lab Results - Last 24 Hours (Table) 02/24/18 02/24/18 02/25/18 Range/Units 17:17 20:51 07:10 POC Glucose (mg/dL) 134 H 110 H 113 H (75-99) mg/dL 02/25/18 Range/Units 11:16 POC Glucose (mg/dL) 105 H (75-99) mg/dL Assessment and Plan Assessment: Left mid lung field community-acquired pneumonia today's x-ray reviewed Acute COPD exacerbation Hypertension hypertensive cardiovascular disease Acute hypoxic respiratory failure Extensive history of smoking and nicotine use Plan: Reviewed follow-up chest x-ray tomorrow Continue IV steroids Breathing treatments DVT and peptic ulcer disease prophylaxis Continue supplemental oxygen Patient to be evaluated for home oxygen at the time of discharge Further recommendations pending plan of care as per clinical response of the patient Time with Patient: Greater than 30
--- NOTE | 2018-02-25 15:54 | P.PN ---
Subjective 72-year-old [place] female admitted for COPD exacerbation patient and repeat chest x-ray which showed both the left and right middle lobe possibly of pneumonia my suspicion is patient mostly has atelectasis, patient will be started on Rocephin as well to cover today quite pneumonia patient is already in doxycycline which will be continued. Patient is still wheezing quite a bit continue with IV steroids will cut down the steroids a little bit. But better than yesterday her respiratory status did improve still get short of breath quite a bit upon minimal ambulation. 02/24/2018 Patient feels like she has phlegm stuck in side the throat will use mucolytic agents for that. Patient is still significantly short of breath 02/25/2018 Patient appears to have some improvement in her respiratory status still quite a bit short of breath Constitutional: Denied any fatigue denied any fever. Cardio vascular: denied any chest pain, palpitations Gastrointestinal denied any nausea vomiting Pulmonary: As mentioned in HPI Neurologic denied any new focal deficits All inpatient medications were reviewed and appropriate changes in these medications as dictated in the interval history and assessment and plan. Objective - Vital Signs Vital signs: Vital Signs Temp 97.5 F L 02/25/18 11:58 Pulse 84 02/25/18 12:30 Resp 20 02/25/18 11:58 BP 160/73 02/25/18 11:58 Pulse Ox 96 02/25/18 11:58 Intake & Output 02/24/18 02/25/18 02/25/18 18:59 06:59 18:59 Intake Total 300 480 Balance 300 480 Weight 92.5 kg Intake: Oral 300 480 Other: Voiding Method Bedside Commode Toilet Toilet Bedside Commode Bedside Commode Diaper # Voids 2 1 3 # Bowel Movements 1 - Exam PHYSICAL EXAMINATION: GENERAL: The patient is alert and oriented x3, not in any acute distress. Well developed, well nourished. HEENT: Pupils are round and equally reacting to light. EOMI. No scleral icterus. No conjunctival pallor. Normocephalic, atraumatic. No pharyngeal erythema. No thyromegaly. CARDIOVASCULAR: S1 and S2 present. No murmurs, rubs, or gallops. PULMONARY: Significant expiratory wheezing and very minimal air entry into bilateral lung jay ABDOMEN: Soft, nontender, nondistended, normoactive bowel sounds. No palpable organomegaly. MUSCULOSKELETAL: No joint swelling or deformity. EXTREMITIES: No cyanosis, clubbing, or pedal edema. NEUROLOGICAL: Gross neurological examination did not reveal any focal deficits. SKIN: No rashes. - Labs CBC & Chem 7: 02/22/18 01:00 02/22/18 01:00 Labs: Abnormal Lab Results - Last 24 Hours (Table) 02/24/18 02/24/18 02/25/18 Range/Units 17:17 20:51 07:10 POC Glucose (mg/dL) 134 H 110 H 113 H (75-99) mg/dL 02/25/18 Range/Units 11:16 POC Glucose (mg/dL) 105 H (75-99) mg/dL Assessment and Plan Plan: -Acute hypercapnic respiratory failure secondary to COPD exacerbation . She'll be continued on IV steroids and inhalational treatments. -Possibility of pneumonia Rocephin will be added to doxycycline patient has a right as well as with left middle lobe possible pneumonia -Hypertension: Patient blood pressure is bit elevated patient resumed on her anti-happens medications -Psoriasis Patient will need pharmacologic DVT and GI prophylaxis
[2018-02-25 17:33] LABS: Glucose,Whole Blood 136 mg/dL (75-99)
[2018-02-25 19:59] LABS: Glucose,Whole Blood 120 mg/dL (75-99)
[2018-02-25] MEDS: MELATONIN 3 MG TABLET PO SCH (21:35)
[2018-02-26] MEDS: IPRATROPIUM-ALBUTEROL 3 ML NEB INHALATION SCH ×6 (04:04→23:47)
[2018-02-26 07:14] LABS: Glucose,Whole Blood 120 mg/dL (75-99)
[2018-02-26] MEDS: BUDESONIDE 0.5 MG/2 ML NEBU INHALATION SCH ×2 (07:14→20:10)
[2018-02-26] MEDS: INSULIN ASPART 100 UNIT/ML 1 ML 10 ML VIAL SQ SCH ×4 (08:09→21:27)
[2018-02-26] MEDS: methylPREDNISolone SOD SUCCI 40 MG/ML 1 ML VIAL IV SCH ×2 (08:15→16:53)
[2018-02-26] MEDS: HEPARIN SODIUM,PORCINE 5,000 UNIT/ML 1 ML VIAL SQ SCH ×2 (08:16→20:32)
[2018-02-26] MEDS: CALCIUM CARB-VIT D 500MG-200UN 1 EACH TAB PO SCH ×2 (08:16→17:09)
[2018-02-26] MEDS: FAMOTIDINE 20 MG TAB PO SCH ×2 (08:16→20:32)
[2018-02-26] MEDS: amLODIPine 5 MG TAB PO SCH (08:16)
[2018-02-26] MEDS: LISINOPRIL-HCTZ 20-12.5 MG 1 EACH TAB PO SCH (08:17)
[2018-02-26] MEDS: DOXYCYCLINE 100 MG CAP PO SCH ×2 (08:17→20:27)
[2018-02-26] MEDS: guaiFENesin-DM 600/30MG 1 EACH TAB.ER.12H PO SCH ×2 (08:17→20:28)
[2018-02-26 11:26] LABS: Glucose,Whole Blood 114 mg/dL (75-99)
[2018-02-26] MEDS: NICOTINE 21MG/24HR PATCH TRANSDERM SCH (16:52)
[2018-02-26 17:04] LABS: Glucose,Whole Blood 110 mg/dL (75-99)
[2018-02-26] MEDS: ACETAMINOPHEN TAB 325 MG TAB PO PRN (20:27)
[2018-02-26] MEDS: MELATONIN 3 MG TABLET PO SCH (20:32)
[2018-02-26 20:48] LABS: Glucose,Whole Blood 138 mg/dL (75-99)
--- NOTE | 2018-02-26 21:06 | P.PN ---
Subjective Progress Note Date: 02/26/18 Principal diagnosis: Acute COPD exacerbation, tracheobronchitis, acute hypoxic respiratory failure, active smoker, 02/26/2018, patient seen eval examined during rounds clinically patient has been doing well awake and alert breathing comfortably cuff congestion shortness breath however still there was severity has improved, overall air entry has improved labs reviewed medications reviewed appears that patient can be discharged home in next 24 hours on oral steroids breathing treatments and antibiotics for follow up on outpatient setting 02/25/2018, patient seen eval examined during the rounds clinically patient has been doing relatively better, awake and alert breathing comparatively more comfortably no obvious distress is present but still get short of breath on activity and exertion severity of respiratory distress however has improved compared to yesterday exam is still of ongoing dry cough unable to produce sputum, labs reviewed care plan discussed with the primary service at length 02/24/2018, patient seen eval examined during the rounds clinically patient is overall remains stable but is still very short of breath does have severe degree of dyspnea on exertion and minimal activity she has ongoing wheezing cough congestion but severity is not much change cough is predominately nonproductive, labs reviewed medications reviewed care plan discussed with the patient as well as staff at length 02/23/2018, patient seen eval examined during the rounds clinically slightly better respiratory status slightly improved breathing more comfortably no obvious distress present hemodynamic status stable, is still very short of breath have ongoing dry nonproductive cough labs reviewed medications reviewed care plan discussed with the patient at length 72-year-old female with history of severe COPD emphysema on bronchodilator in the form of nebulizer, patient is still a active smoker, has not been feeling well for the last 3 or 4 days with increased cough congestion shortness of breath symptoms have been progressive decided to come into emergency department she was found to have oxygen saturation of only 83% she had wheezing shortness of breath she has been given bronchodilator therapy without any significant relief and eventually admitted into the hospital she is currently on supplemental oxygen breathing treatment but just get short of breath on minimal activity and exertion, on specific questioning denies any seizure-like to a loss of consciousness), denies any chest pain or radiation of pain, denies any hemoptysis, denies any bowel or bladder discomfort, and yet home she takes blood pressure medicine also has been on nebulizer therapy and as needed MDI, Objective - Vital Signs Vital signs: Vital Signs Temp 98.3 F 02/26/18 12:07 Pulse 82 02/26/18 20:24 Resp 18 02/26/18 20:11 BP 153/82 02/26/18 12:07 Pulse Ox 97 02/26/18 15:40 Intake & Output 02/26/18 02/26/18 02/27/18 06:59 18:59 06:59 Intake Total 600 Balance 600 Intake: Oral 600 Other: Voiding Method Toilet Toilet Bedside Commode Bedside Commode Diaper Diaper # Voids 1 2 - Exam - Constitutional General appearance: average body habitus, cooperative, disheveled, mild distress , obese - EENT Eyes: EOMI, PERRLA, poor dentition, normal appearance ENT: normal oropharynx Ears: bilateral: normal - Neck Neck: normal ROM Carotids: bilateral: upstroke normal Thyroid: bilateral: normal size - Respiratory Respiratory: bilateral: diminished, rhonchi, wheezing, prolonged expiration, negative: dullness, rales - Cardiovascular Rhythm: regular Heart sounds: normal: S1, S2 - Gastrointestinal General gastrointestinal: normal bowel sounds - Integumentary Integumentary: normal turgor - Neurologic Neurologic: CNII-XII intact - Musculoskeletal Musculoskeletal: gait normal, generalized weakness, strength equal bilaterally - Psychiatric Psychiatric: A&O x's 3, appropriate affect, intact judgment & insight - Labs CBC & Chem 7: 02/22/18 01:00 02/22/18 01:00 Labs: Abnormal Lab Results - Last 24 Hours (Table) 02/26/18 02/26/18 02/26/18 Range/Units 07:12 11:23 17:03 POC Glucose (mg/dL) 120 H 114 H 110 H (75-99) mg/dL 02/26/18 Range/Units 20:41 POC Glucose (mg/dL) 138 H (75-99) mg/dL Assessment and Plan Assessment: Left mid lung field community-acquired pneumonia today's x-ray reviewed Acute COPD exacerbation Hypertension hypertensive cardiovascular disease Acute hypoxic respiratory failure Extensive history of smoking and nicotine use Plan: Continue IV steroids Breathing treatments DVT and peptic ulcer disease prophylaxis Continue supplemental oxygen Patient to be evaluated for home oxygen at the time of discharge Remains stable possible discharge in next 24 hours on oral steroids antibiotics and breathing treatments Further recommendations pending plan of care as per clinical response of the patient Time with Patient: Greater than 30
--- NOTE | 2018-02-26 21:07 | PN ---
PROGRESS NOTE I am covering for Dr. Le. DATE OF SERVICE: 02/26/2018. INTERIM HISTORY: This 72-year-old woman was admitted with acute hypercapnic respiratory failure also had COPD exacerbation, possible pneumonia also. No chest pain. No palpitations. No fever. Dr. Cochran is following the patient closely. EXAM: Alert and oriented times three. Pulse 83, blood pressure 150/82, respiration 20, temperature 98.2, pulse ox 98% on 2 L. HEENT: Conjunctivae normal. Neck is no jugular venous distention. Cardiovascular: S1, S2 muffled. Respirations: Breath sounds diminished in the bases. A few scattered rhonchi and crackles. Expiratory wheezing. Abdomen soft. Nervous system: No focal deficits. LABS: WBC 6.2, hemoglobin 14.5. Accu-Cheks noted. ASSESSMENT: 1. Chronic obstructive pulmonary disease acute exacerbation with acute hypoxic hypercarbic respiratory failure. 2. Possible pneumonia possibly gram-negative. 3. Hypertension. 4. History of psoriasis. 5. Increased random blood sugar. 6. Hyponatremia. RECOMMENDATIONS AND DISCUSSION: Recommend to continue current medications, management. Monitoring and symptomatic treatment. Otherwise, closely follow with Dr. Cochran. Taper the steroids. Continue the bronchodilators, antibiotics. Prognosis guarded because of multiple complex medical issues and further recommendations to follow. MMODL / IJN: [id number] /
[2018-02-27] MEDS: methylPREDNISolone SOD SUCCI 40 MG/ML 1 ML VIAL IV SCH ×3 (00:49→17:58)
[2018-02-27] MEDS: IPRATROPIUM-ALBUTEROL 3 ML NEB INHALATION SCH ×4 (03:56→14:57)
[2018-02-27 07:01] VITALS: RESP 20
[2018-02-27 07:29] LABS: Glucose,Whole Blood 109 mg/dL (75-99)
[2018-02-27] MEDS: INSULIN ASPART 100 UNIT/ML 1 ML 10 ML VIAL SQ SCH ×2 (08:08→12:57)
[2018-02-27] MEDS: BUDESONIDE 0.5 MG/2 ML NEBU INHALATION SCH (08:09)
[2018-02-27] MEDS: NICOTINE 21MG/24HR PATCH TRANSDERM SCH (08:36)
[2018-02-27] MEDS: amLODIPine 5 MG TAB PO SCH (08:38)
[2018-02-27] MEDS: CALCIUM CARB-VIT D 500MG-200UN 1 EACH TAB PO SCH (08:38)
[2018-02-27] MEDS: HEPARIN SODIUM,PORCINE 5,000 UNIT/ML 1 ML VIAL SQ SCH (08:38)
[2018-02-27] MEDS: FAMOTIDINE 20 MG TAB PO SCH (08:38)
[2018-02-27] MEDS: DOXYCYCLINE 100 MG CAP PO SCH (08:39)
[2018-02-27] MEDS: guaiFENesin-DM 600/30MG 1 EACH TAB.ER.12H PO SCH (08:39)
[2018-02-27] MEDS: LISINOPRIL-HCTZ 20-12.5 MG 1 EACH TAB PO SCH (08:40)
[2018-02-27 11:53] LABS: Glucose,Whole Blood 93 mg/dL (75-99)
[2018-02-27 12:07] VITALS: BP 149/78; TEMP 98.1
--- NOTE | 2018-02-27 14:48 | DS ---
DISCHARGE SUMMARY DATE OF SERVICE: 02/27/2018 FINAL DIAGNOSES: 1. Chronic obstructive pulmonary disease acute exacerbation with acute hypoxic hypercarbic respiratory failure with acute with possible pneumonia possibly gram-negative. 2. Hypertension. 3. History of psoriasis. 4. Increased random blood sugar possibly secondary to steroids and hyponatremia. DISCHARGE DISPOSITION: The patient is being discharged in stable condition with guarded prognosis. Dr. Cochran cleared the patient for discharge. HISTORY OF PRESENT ILLNESS: This 72-year-old woman with a past history of multiple medical problems as mentioned earlier being followed by Dr. Le in the outpatient setting was admitted with COPD and as well as features of pneumonia. Patient treated with bronchodilators, antibiotics and steroids. Patient improved significantly. Pulmonary cleared the patient for discharge. PHYSICAL EXAMINATION: On exam vitals are stable. Cardiovascular: S1, S2 normal. Respiratory: A few scattered rhonchi. Abdomen soft. Nervous system: No focal deficits. Patient discharged in stable condition with the following advice and medications : 1. Diet is cardiac diet. 2. Activity limited until follow up. 3. Follow up with Dr. Le in 1-2 days. 4. Follow up with Dr. Cochran in 1 week. MEDICATIONS ARE: 1. Albuterol q.i.d. and nebulizer p.r.n. 2. Norvasc 5 mg p.o. 3. Pulmicort 0.5 b.i.d. 4. Calcium with vitamin D 1 p.o. b.i.d. 5. Zestoretic 20/12.5 p.o. daily. 6. Multivitamins 1 p.o. daily. 7. Ceftin 500 mg p.o. b.i.d. for 3 days. 8. Mucinex 600 mg p.o. b.i.d. for 10 days. 9. DuoNeb q.i.d. and p.r.n. 10.Habitrol 21 daily. 11.No smoking. 12.Prednisone taper 40 mg daily for 3 days, 30 for 3 days, 20 for three days, 10 for three days. MMODL / IJN: [id number] / MTDD
[2018-02-27 15:09] VITALS: PULSE 84
[2018-02-27] MEDS ORDERED: predniSONE 20 MG TAB PO SCH (17:00)
[2018-02-27 17:19] LABS: Glucose,Whole Blood 106 mg/dL (75-99)
--- NOTE | 2018-02-27 18:30 | PN ---
PROGRESS NOTE DATE OF SERVICE: 02/27/2018 She was seen on 02/27/2018. She has been hemodynamically stable. She is less short of breath and is doing significantly better than when she came in. On physical examination, her respiratory rate is 18, pulse rate of 82. She is afebrile. Blood pressure 149/78, O2 saturation on room air with exercise is 85%. HEENT is unremarkable. Chest reveals decreased breath sounds with prolonged expiration, but no clear wheeze. Cardiovascular system reveals an S1, S2. Abdomen is soft. There is trace pedal edema. IMPRESSION: At this time is: 1. Severe asthma with chronic obstructive pulmonary disease with acute exacerbation. 2. Acute respiratory failure. 3. Hypoxemia on exertion. At this point in time from a pulmonary standpoint, discharge planning is appropriate. She may require supplemental oxygen on exertion, but this can be evaluated as an outpatient when she is otherwise stable. Keep her on prednisone in a tapering fashion. She will need close outpatient followup. Depending on how she does, we should make further changes to her care. MMFAVIOLAL / IJN: [id number] /
== END 2018-02-27 17:35 | disposition home or self-care (01) | DRG 177 ==
LOC: EC 00:25 → 3NMEDONC 02:28
PROVIDERS: ADMIT Internal Medicine; ATTEND Internal Medicine
DX: J15.6 Pneumonia due to other Gram-negative bacteria (principal); J96.02 Acute respiratory failure with hypercapnia; J96.01 Acute respiratory failure with hypoxia; E87.1 Hypo-osmolality and hyponatremia; J44.0 Chronic obstructive pulmonary disease with (acute) lower respiratory infection; J44.1 Chronic obstructive pulmonary disease with (acute) exacerbation; J45.901 Unspecified asthma with (acute) exacerbation; J98.11 Atelectasis; F17.210 Nicotine dependence, cigarettes, uncomplicated; Z71.6 Tobacco abuse counseling; I11.9 Hypertensive heart disease without heart failure; L40.9 Psoriasis, unspecified; Z79.899 Other long term (current) drug therapy; R73.9 Hyperglycemia, unspecified; T38.0X5A Adverse effect of glucocorticoids and synthetic analogues, initial encounter; Z88.6 Allergy status to analgesic agent
CPT/HCPCS: 36415; 71045; 71046; 80053; 82550; 82553; 83036; 83735; 83880; 84484; 85025; 85610; 85730; 93005; 94640; 94760; 96374; 99285

== ENCOUNTER 2018-05-02 18:33 | Emergency (ER) | payer MEDICARE ==
[2018-05-02 18:51] VITALS: BP 139/64; TEMP 97.9
--- NOTE | 2018-05-02 19:47 | ED ---
General Adult HPI <Freddy Singh - Last Filed: 05/02/18 20:57> - General Source: patient Mode of arrival: ambulatory Limitations: no limitations <Mary Pineda - Last Filed: 05/03/18 03:21> - General Chief complaint: Extremity Injury, Lower Stated complaint: Poss blood clot Time Seen by Provider: 05/02/18 19:15 - History of Present Illness Initial comments: 73-year-old female patient presents to the emergency department today for evaluation of right leg pain. Patient states that she has had increasing pain to the right leg for the last several days. States today that she developed an area of redness and a large blister over the right lateral knee. Patient states that the pain to her leg starts behind the knee and radiates up to the thigh and down to the calf. She denies any fevers or chills with this. States that her leg is more swollen than usual. She denies any history of DVT, recent travel, use of hormonal medications, or cancer. States that she does have COPD and has been having some shortness of breath, she does wear 2 L of oxygen at home. Patient denies any recent rash, chest pain, abdominal pain, nausea, vomiting, diarrhea, constipation, back pain, numbness, tingling, dizziness, weakness, hematuria, dysuria, urinary urgency, urinary frequency, headache, visual changes, or any other complaints. (Mary Pineda) - Related Data Home Medications Medication Instructions Recorded Confirmed Lisinopril-Hctz 20-12.5 mg 1 tab PO DAILY 03/05/14 05/02/18 [Zestoretic 20-12.5] amLODIPine [Norvasc] 5 mg PO DAILY 03/05/14 05/02/18 Calcium Carbonate/Vitamin D3 1 tab PO BID 05/21/14 05/02/18 [Calcium 600-Vit D3 400 Tablet] Albuterol Inhaler [Ventolin Hfa 2 puff INHALATION RT-QID 07/28/17 05/02/18 Inhaler] Multivit-Min/FA/Lycopen/Lutein 1 tab PO DAILY 07/28/17 05/02/18 [Centrum Silver Tablet] Albuterol Nebulized [Ventolin 2.5 mg INHALATION RT-QID 02/22/18 05/02/18 Nebulized] Budesonide [Pulmicort] 0.5 mg INHALATION RT-BID 02/22/18 05/02/18 Formoterol Fumarate [Perforomist] 20 mcg INHALATION RT-BID 05/02/18 05/02/18 predniSONE 5 mg PO DAILY 05/02/18 05/02/18 Allergies Allergy/AdvReac Type Severity Reaction Status Date / Time aspirin Allergy Anaphylaxis Verified 05/02/18 19:28 Review of Systems ROS Other: All systems not noted in ROS Statement are negative. <Freddy Singh - Last Filed: 05/02/18 20:57> ROS Other: All systems not noted in ROS Statement are negative. <Mary Pineda - Last Filed: 05/03/18 03:21> ROS Statement: Those systems with pertinent positive or pertinent negative responses have been documented in the HPI. Past Medical History Past Medical History: Asthma, Hypertension, Skin Disorder Additional Past Medical History / Comment(s): PSORIASIS TAQUERIA. LEGS UP TO KNEES- NO RX USED History of Any Multi-Drug Resistant Organisms: None Reported Past Surgical History: Tubal Ligation Additional Past Surgical History / Comment(s): D & C , TL 1971 Past Anesthesia/Blood Transfusion Reactions: No Reported Reaction Past Psychological History: No Psychological Hx Reported Smoking Status: Former smoker - Past Family History Mother Additional Family Medical History / Comment(s): pacemaker <Mary Pineda - Last Filed: 05/03/18 03:21> General Exam Limitations: no limitations General appearance: alert, in no apparent distress, other (Physical well- developed, well-nourished elderly female patient in no acute distress. Vital signs upon presentation are temperature 97.9F, pulse 74, respirations 18, blood pressure 139/64, pulse ox 94% on room air.) Eye exam: Present: normal appearance, PERRL, EOMI. Absent: scleral icterus, conjunctival injection, periorbital swelling ENT exam: Present: normal exam, normal oropharynx, mucous membranes moist Respiratory exam: Present: normal lung sounds bilaterally. Absent: respiratory distress, wheezes, rales, rhonchi, stridor Cardiovascular Exam: Present: regular rate, normal rhythm, normal heart sounds. Absent: systolic murmur, diastolic murmur, rubs, gallop, clicks Extremities exam: Present: full ROM, normal capillary refill, other (Patient has generalized swelling to the right lower extremity. Nonpitting edema. There is an area of erythema noted to the right lateral knee with a blister that appears to contain serous fluid. Remainder of skin is pink, warm, dry. Cap refills less than 2 seconds. Pedal posttibial pulses are 2+ and equal bilaterally.). Absent: normal inspection, tenderness, pedal edema, joint swelling, calf tenderness Neurological exam: Present: alert, oriented X3, CN II-XII intact Psychiatric exam: Present: normal affect, normal mood Skin exam: Present: warm, dry, intact, normal color. Absent: rash <Mary Pineda - Last Filed: 05/03/18 03:21> Course <Freddy Singh - Last Filed: 05/02/18 20:57> <Mary Pineda - Last Filed: 05/03/18 03:21> Vital Signs 05/02/18 05/02/18 18:48 21:06 Temperature 97.9 F Pulse Rate 74 66 Respiratory 18 142 H Rate Blood Pressure 139/64 O2 Sat by Pulse 94 L 95 Oximetry - Reevaluation(s) Reevaluation #1: 05/02/18 20:57 And P supervision: I proceeded [id number] evaluation the patient assures present with complaints of the right lower extremity he does have a history of psoriasis. Patient does have evidence of psoriasis and a right upper anterior lateral leg with a small blister formation secondary to friction. Negative ultrasound for DVT patient will be discharged I do agree with the assessment and plan. (Freddy Singh) Medical Decision Making - Lab Data Result diagrams: 05/02/18 19:40 05/02/18 19:40 <Freddy Singh - Last Filed: 05/02/18 20:57> - Lab Data Result diagrams: 05/02/18 19:40 05/02/18 19:40 - Radiology Data Radiology results: report reviewed, image reviewed <Mary Pineda - Last Filed: 05/03/18 03:21> - Medical Decision Making 73-year-old female patient presents to the emergency department today for evaluation of right leg pain and swelling. Physical examination did reveal an area of erythema with a serous blister noted. Neurovascular status was intact. Ultrasound was obtained to rule out DVT and showed no evidence for acute DVT. Labs were obtained and revealed no evidence for infection or any other abnormalities. I did discuss findings and results with the patient. We did discuss the blisters most likely related to friction. Pain and discomfort since it is bilateral is most likely related to arthritis and she is instructed to take tylenol over the counter. She does have an appointment with her mortgage protection specialist on Wednesday, she is urged to keep this appointment. She is instructed to follow-up with her primary care physician for recheck in 1-2 days. Return parameters discussed in detail patient verbalizes understanding and agrees with this plan (Mary Pineda) - Lab Data Lab Results 05/02/18 05/02/18 05/02/18 Range/Units 19:40 19:40 19:40 WBC 7.5 (3.8-10.6) k/uL RBC 4.11 (3.80-5.40) m/uL Hgb 12.8 (11.4-16.0) gm/dL Hct 39.0 (34.0-46.0) % MCV 95.0 (80.0-100.0) fL MCH 31.2 (25.0-35.0) pg MCHC 32.9 (31.0-37.0) g/dL RDW 15.6 H (11.5-15.5) % Plt Count 279 (150-450) k/uL Neutrophils % 61 % Lymphocytes % 28 % Monocytes % 6 % Eosinophils % 3 % Basophils % 0 % Neutrophils # 4.6 (1.3-7.7) k/uL Lymphocytes # 2.1 (1.0-4.8) k/uL Monocytes # 0.4 (0-1.0) k/uL Eosinophils # 0.2 (0-0.7) k/uL Basophils # 0.0 (0-0.2) k/uL Sodium 138 (137-145) mmol/L Potassium 3.9 (3.5-5.1) mmol/L Chloride 99 (98-107) mmol/L Carbon Dioxide 33 H (22-30) mmol/L Anion Gap 6 mmol/L BUN 16 (7-17) mg/dL Creatinine 0.62 (0.52-1.04) mg/dL Est GFR (CKD-EPI)AfAm >90 (>60 ml/min/1.73 sqM) Est GFR (CKD-EPI)NonAf 90 (>60 ml/min/1.73 sqM) Glucose 111 H (74-99) mg/dL Calcium 9.8 (8.4-10.2) mg/dL Total Bilirubin 0.5 (0.2-1.3) mg/dL AST 24 (14-36) U/L ALT 33 (9-52) U/L Alkaline Phosphatase 79 (38-126) U/L NT-Pro-B Natriuret Pep 370 pg/mL Total Protein 6.6 (6.3-8.2) g/dL Albumin 4.1 (3.5-5.0) g/dL - Radiology Data Two-view x-ray of the chest is obtained. Report was reviewed in its entirety. Impression by Dr. Reinoso shows cardiomegaly without acute pulmonary process. ( Mary Pineda) Disposition <Freddy Singh - Last Filed: 05/02/18 20:57> Is patient prescribed a controlled substance at d/c from ED?: No Time of Disposition: 21:00 <Mary Pineda - Last Filed: 05/03/18 03:21> Clinical Impression: Lower extremity edema, Leg pain Disposition: HOME SELF-CARE Condition: Good Instructions (If sedation given, give patient instructions): Leg Edema (ED), Leg Pain (ED) Additional Instructions: Continue taking Tylenol for pain control. Follow-up with mortgage protection specialist as you have planned on Wednesday. Return to the emergency department immediately for any new, worsening, or concerning symptoms. Referrals: Emilio Le DO [Primary Care Provider] - 1-2 days
[2018-05-02 19:52] LABS: Basophils % (A) 0 %; Eosinophils # (A) 0.2 k/uL (0-0.7); Eosinophils % (A) 3 %; HGB 12.8 gm/dL (11.4-16.0); Lymphocytes # (A) 2.1 k/uL (1.0-4.8); Lymphocytes % (A) 28 %; MCH 31.2 pg (25.0-35.0); MCHC 32.9 g/dL (31.0-37.0); Mean Platelet Volume 6.5; Monocytes # (A) 0.4 k/uL (0-1.0); Monocytes % (A) 6 %; Neutrophils # (A) 4.6 k/uL (1.3-7.7); Neutrophils % (A) 61 %; Platelet Count 279 k/uL (150-450); RBC 4.11 m/uL (3.80-5.40); RDW 15.6 % (11.5-15.5); WBC 7.5 k/uL (3.8-10.6)
[2018-05-02 20:01] LABS: ALT 33 U/L (9-52); AST 24 U/L (14-36); Albumin 4.1 g/dL (3.5-5.0); Alkaline Phosphatase 79 U/L (38-126); Anion Gap 6 mmol/L; Blood Urea Nitrogen 16 mg/dL (7-17); Calcium 9.8 mg/dL (8.4-10.2); Carbon Dioxide 33 mmol/L (22-30); Chloride 99 mmol/L (98-107); Glucose 111 mg/dL (74-99); Potassium 3.9 mmol/L (3.5-5.1); Sodium 138 mmol/L (137-145); Total Bilirubin 0.5 mg/dL (0.2-1.3); Total Protein 6.6 g/dL (6.3-8.2)
--- NOTE | 2018-05-02 20:39 | XR ---
EXAMINATION TYPE: XR chest 2V DATE OF EXAM: 05/02/2018 COMPARISON: Chest x-rays February 23, 2018 and April 07, 2018. HISTORY: Chest pain per order. Leg swelling and edema per technologist. TECHNIQUE: Frontal and lateral views of the chest are obtained. FINDINGS: There is chronic parenchymal change without suspicious focal air space opacity, pleural ef fusion, or pneumothorax seen. The cardiac silhouette size is mildly enlarged. The osseous structur es are intact. IMPRESSION: Cardiomegaly without acute pulmonary process.
--- NOTE | 2018-05-02 20:40 | US ---
EXAMINATION TYPE: US venous doppler duplex LE RT DATE OF EXAM: 05/02/2018 7:32 PM COMPARISON: Right lower extremity venous ultrasound July 28, 2017 CLINICAL HISTORY: Pain. Pain, swelling, redness right cartwright. SIDE PERFORMED: Right TECHNIQUE: The lower extremity deep venous system is examined utilizing real time linear array sonog eliezer with graded compression, doppler sonography and color-flow sonography. VESSELS IMAGED: External Iliac Vein (EIV) Common Femoral Vein Deep Femoral Vein Greater Saphenous Vein * Femoral Vein Popliteal Vein Small Saphenous Vein * Proximal Calf Veins (* superficial vessels) Right Leg: Negative for DVT Grayscale, color doppler, spectral doppler imaging performed of the deep veins of the right lower ext remity. There is normal flow, compressibility, vascular waveforms. IMPRESSION: No ultrasound evidence for acute DVT in the right lower extremity.
[2018-05-02 21:07] VITALS: PULSE 66; RESP 142
== END 2018-05-02 21:07 | disposition home or self-care (01) ==
LOC: EC 18:33
DX: R60.0 Localized edema (principal); M79.604 Pain in right leg; J45.909 Unspecified asthma, uncomplicated; I10 Essential (primary) hypertension; L40.9 Psoriasis, unspecified; Z87.891 Personal history of nicotine dependence; Z79.52 Long term (current) use of systemic steroids; Z79.51 Long term (current) use of inhaled steroids; Z79.899 Other long term (current) drug therapy; Z88.6 Allergy status to analgesic agent
CPT/HCPCS: 36415; 71046; 80053; 83880; 85025; 99284

== ENCOUNTER → 2019-04-17 | Outpatient (CLI) | payer MEDICARE ==
--- NOTE | 2019-04-17 15:11 | XR ---
EXAMINATION TYPE: XR chest 2V DATE OF EXAM: 04/17/2019 COMPARISON: 05/02/2018 HISTORY: Shortness of breath TECHNIQUE: Frontal and lateral views of the chest are obtained. FINDINGS: Scattered senescent parenchymal changes noted. Hyperinflation compatible with COPD. No evidence for infiltrate. No evidence for atelectasis. Heart size is stable. Mediastinal structures are stable and grossly unremarkable. No evidence for hilar prominence. Degenerative changes dorsal spine. IMPRESSION: 1. No evidence for acute pulmonary disease.
== END | disposition home or self-care (01) ==
LOC: RADXRMAIN 14:31
PROVIDERS: ATTEND Family Medicine
DX: J44.9 Chronic obstructive pulmonary disease, unspecified (principal); R06.02 Shortness of breath; R05 Cough
CPT/HCPCS: 71046

== ENCOUNTER → 2019-09-21 | Outpatient (CLI) | payer MEDICARE, OTHER | END | disposition home or self-care (01) | LOC: LABWHC1 11:03 | PROVIDERS: ATTEND Family Medicine | DX: J44.9 Chronic obstructive pulmonary disease, unspecified (principal); R06.02 Shortness of breath; J02.9 Acute pharyngitis, unspecified | CPT/HCPCS: U0003; C9803 ==

== ENCOUNTER 2019-12-12 07:57 | Day surgery (SDC) | payer MEDICARE, OTHER ==
[2019-12-07 15:07] VITALS: BMI 40.7
[~2019-12-12 07:57] MED LIST: LACTATED RINGERS 1,000 ML IV SCH; LIDOCAINE 1% (10MG/ML) FOR IV START INTRADERMA PRN; MIDAZOLAM 2 MG/2 ML VIAL IV PRN
[2019-12-12 08:23] VITALS: TEMP 98.7
[2019-12-12 08:35] LABS: Glucose,Whole Blood 94 mg/dL (75-99)
[2019-12-12] MEDS ORDERED: fentaNYL (PF) 50 MCG/ML 2 ML AMP ONE (09:09)
[2019-12-12] MEDS ORDERED: LIDOCAINE 1% INJ 10MG/ML (20 ML MDV) ONE (09:09)
[2019-12-12] MEDS ORDERED: PROPOFOL 10 MG/ML 20 ML VIAL IV ONE (09:09)
--- NOTE | 2019-12-12 09:14 | P.GSHP ---
History of Present Illness H&P Date: 12/12/19 Chief Complaint: rectal bleeding Patient here today for colonoscopy. Has had some rectal bleeding at times. She has not had a previous colonoscopy. No family history of colon cancer. No abdominal pain. Past Medical History Past Medical History: Asthma, COPD, Hypertension, Skin Disorder Additional Past Medical History / Comment(s): Psoriasis. c/o Constipation, blood on tissue after BM. On O2 2 L NC continuous. Can't lay flat on back. Edema BLE. History of Any Multi-Drug Resistant Organisms: None Reported Past Surgical History: Tubal Ligation Additional Past Surgical History / Comment(s): D & C , TL 1971. Past Anesthesia/Blood Transfusion Reactions: No Reported Reaction Smoking Status: Former smoker - Past Family History Mother Additional Family Medical History / Comment(s): pacemaker Sister(s) Family Medical History: Cancer Additional Family Medical History / Comment(s): brain cancer Medications and Allergies Home Medications Medication Instructions Recorded Confirmed Type amLODIPine [Norvasc] 5 mg PO DAILY 03/05/14 12/12/19 History Calcium Carbonate/Vitamin D3 1 tab PO DAILY 05/21/14 12/12/19 History [Calcium 600-Vit D3 400 Tablet] Albuterol Inhaler (Mhu) [Ventolin 2 puff INHALATION RT-QID 07/28/17 12/12/19 History Hfa Inhaler (Mhu)] Albuterol Nebulized [Ventolin 2.5 mg INHALATION RT-QID 02/22/18 12/12/19 History Nebulized] predniSONE 5 mg PO DAILY 05/02/18 12/12/19 History Furosemide [Lasix] 40 mg PO DAILY 12/07/19 12/12/19 History Omeprazole [PriLOSEC] 20 mg PO AC-BRKFST 12/07/19 12/12/19 History Potassium Chloride [K-Tab ER] 20 meq PO DAILY 12/07/19 12/12/19 History Psyllium Husk [Metamucil] 0.4 gm PO DIRECTED 12/07/19 12/12/19 History lisinopriL [Zestril] 5 mg PO DAILY 12/07/19 12/12/19 History Allergies Allergy/AdvReac Type Severity Reaction Status Date / Time aspirin Allergy Anaphylaxis Verified 12/12/19 08:12 Surgical - Exam Vital Signs Temp Pulse Resp BP Pulse Ox 98.7 F 75 20 159/66 91 L 12/12/19 08:10 12/12/19 08:10 12/12/19 08:10 12/12/19 08:10 12/12/19 08:10 Physical exam: General: Well-developed, well-nourished HEENT: Normocephalic, sclerae nonicteric Abdomen: Nontender, nondistended Extremities: No edema Neuro: Alert and oriented Assessment and Plan (1) Rectal bleeding Narrative/Plan: Will proceed with colonoscopy at this time Current Visit: Yes Status: Acute Code(s): K62.5 - HEMORRHAGE OF ANUS AND RECTUM SNOMED Code(s): 26884965
--- NOTE | 2019-12-12 09:34 | P.PCN ---
Date of Procedure: 12/12/19 Procedure(s) Performed: PREOPERATIVE DIAGNOSIS: Rectal bleeding POSTOPERATIVE DIAGNOSIS: Descending colon mass, small rectal polyp, diverticulosis PROCEDURE: Colonoscopy With biopsy ANESTHESIA: MAC SURGEON: Severo Noel M.D. SPECIMENS: Ascending colon mass, rectal polyp ENDOSCOPIC PROCEDURE: The patient was placed on the endoscopy table in the left decubitus position. The Olympus colonoscope was inserted into the anus and passed under direct visualization to the base of the cecum. The appendiceal orifice was visualized. From that point the scope was slowly withdrawn inspecting all surfaces carefully. There were no neoplastic inflammatory or polypoid lesions throughout the cecum. In the ascending colon a mass was seen just beyond the ileocecal valve on the opposite wall. This had a friable appearance. This Took up approximately 1/3-1/2 the circumference of the wall although difficult to visualize adjacent to a fold. The remainder of the descending transverse descending and sigmoid colon appeared normal. In the rectum a small polyp was seen and removed using the biopsy forceps. The remainder of the rectum was normal. There was extensive diverticulosis. Digital rectal examination was normal. The patient was taken to the recovery room in stable condition per anesthesia guidelines. RECOMMENDATIONS: Await biopsy results. Follow-up in office 1-2 weeks. Will obtain CAT scan abdomen and pelvis.
[2019-12-12 09:47] VITALS: RESP 18
[2019-12-12 10:09] VITALS: BP 133/65; PULSE 70
== END 2019-12-12 10:24 | disposition home or self-care (01) ==
LOC: ORWHC2ENDO 07:57
PROVIDERS: ATTEND Surgery
DX: D12.2 Benign neoplasm of ascending colon (principal); K62.1 Rectal polyp; K57.30 Diverticulosis of large intestine without perforation or abscess without bleeding; J44.9 Chronic obstructive pulmonary disease, unspecified; K21.9 Gastro-esophageal reflux disease without esophagitis; I10 Essential (primary) hypertension; E66.9 Obesity, unspecified; Z68.42 Body mass index [BMI] 45.0-49.9, adult; L40.9 Psoriasis, unspecified; R60.0 Localized edema; Z98.51 Tubal ligation status; Z87.891 Personal history of nicotine dependence; Z82.49 Family history of ischemic heart disease and other diseases of the circulatory system; Z80.8 Family history of malignant neoplasm of other organs or systems; Z79.52 Long term (current) use of systemic steroids; Z79.899 Other long term (current) drug therapy; Z88.6 Allergy status to analgesic agent
CPT/HCPCS: 88305; 45380; J2001; J3010; J2704

== ENCOUNTER → 2019-12-20 | Outpatient (CLI) | payer MEDICARE ==
--- NOTE | 2019-12-20 14:53 | XR ---
EXAMINATION TYPE: XR ribs LT DATE OF EXAM: 12/20/2019 COMPARISON: Chest x-ray April 17, 2019 HISTORY: Chest and left-sided rib pain. TECHNIQUE: Frontal and oblique images of the left-sided ribs. FINDINGS: No acute displaced left-sided rib fractures. No suspicious destructive or lytic lesions. Vi sualized left lung is clear. Degenerative change in the left shoulder redemonstrated. Overlying soft tissue is unremarkable. IMPRESSION: As above.
== END | disposition home or self-care (01) ==
LOC: RADXRMAIN 14:26
PROVIDERS: ATTEND Family Medicine
DX: R07.81 Pleurodynia (principal)

== ENCOUNTER → 2019-12-29 | Outpatient (CLI) | payer MEDICARE ==
--- NOTE | 2019-12-29 17:32 | CT ---
EXAMINATION TYPE: CT abdomen pelvis w con DATE OF EXAM: 12/29/2019 COMPARISON: None HISTORY: Colon mass CT DLP: 1179.2 mGycm Automated exposure control for dose reduction was used. TECHNIQUE: Helical acquisition of images was performed from the lung bases through the pelvis. CONTRAST: Performed with Oral Contrast and with IV Contrast, patient injected with 80 mL of Isovue 300. FINDINGS: LUNG BASES: No pericardial or pleural effusion. Calcified coronary artery disease. LIVER: Normal. BILIARY SYSTEM: Cholelithiasis. No intrahepatic or extrahepatic biliary ductal dilatation. PANCREAS: Normal. SPLEEN: Normal. ADRENALS: Normal. KIDNEYS: Normal. BOWEL: There is asymmetric thickening of the lateral proximal ascending colon just above the ileocec al valve, measuring up to 8 mm (6:45, 3:46). No evidence of bowel obstruction. Normal appendix. Colon ic diverticulosis. No acute diverticulitis. PERITONEUM: No pneumoperitoneum. No free fluid. LYMPH NODES: No lymphadenopathy. PELVIS: Normal. VASCULATURE: No abdominal aortic aneurysm. Calcified atherosclerotic disease. MUSCULOSKELETAL: Decreased osseous mineralization. Degenerative changes of the spine and bilateral h ips. No aggressive osseous destructive lesions. IMPRESSION: 1. Asymmetric thickening of the lateral proximal ascending colon may represent neoplasm. 2. No evidence of metastatic disease of the abdomen or pelvis. 3. Cholelithiasis.
== END | disposition home or self-care (01) ==
LOC: RADCTMAIN 11:22
PROVIDERS: ATTEND Surgery
DX: K80.20 Calculus of gallbladder without cholecystitis without obstruction (principal); K63.89 Other specified diseases of intestine
CPT/HCPCS: 82565; 84520; 74177; 36415; Q9967

== ENCOUNTER → 2020-03-06 | Outpatient (CLI) | payer MEDICARE | END | disposition home or self-care (01) | LOC: LABWHC1 14:48 | PROVIDERS: ATTEND Family Medicine | DX: Z20.828 Contact with and (suspected) exposure to other viral communicable diseases (principal) | CPT/HCPCS: U0003; C9803 ==

== ENCOUNTER → 2020-06-03 | Outpatient (CLI) | payer MEDICARE ==
--- NOTE | 2020-06-03 13:33 | CT ---
EXAMINATION TYPE: CT sinus wo con DATE OF EXAM: 06/03/2020 COMPARISON: None HISTORY: Chronic sinusitis, left ear and sinuses CT DLP: 581.[address] of the paranasal sinuses was performed in the axial and coronal planes. Bone and soft tissue settings are submitted. The paranasal sinuses demonstrate normal aeration and development. The paranasal sinuses are free of mucosal thickening or air fluid level. The osteal meatal units are patent bilaterally. The nasal septum is midline. No bony destructive changes are seen within the field of view. IMPRESSION: Normal unenhanced CT of the paranasal sinuses.
== END | disposition home or self-care (01) ==
LOC: RADCTMAIN 13:06
PROVIDERS: ATTEND Otolaryngology
DX: J32.9 Chronic sinusitis, unspecified (principal)
CPT/HCPCS: 70486

== ENCOUNTER → 2023-10-11 | Outpatient (CLI) | payer MEDICARE | END | disposition home or self-care (01) | LOC: LABPRL 15:05 | PROVIDERS: ATTEND Family Medicine | DX: Z00.00 Encounter for general adult medical examination without abnormal findings (principal); I10 Essential (primary) hypertension | CPT/HCPCS: 80053; 80061; 83036; 85025 ==